=== PATIENT | female | born 1955 | race Caucasian/White ===

== ENCOUNTER → 2016-11-02 | Outpatient (CLI) | payer MEDICARE, OTHER ==
[~2016-11-02] MED LIST: FLUT12AE4 IH; IPRA0.2S51 IH; IPRA3AMP INH; LEVO500T80 PO; MONT10TA24 PO
--- NOTE | 2016-11-02 13:22 | Diagnostic Imaging Report ---
PROCEDURE: CT chest without contrast. TECHNIQUE: Multiple contiguous axial images were obtained through the chest without the use of intravenous contrast. INDICATION: History of pneumothorax. COPD. COMPARISON: 12/02/2015. FINDINGS: Left chest tube has been removed in the interim. The lungs show hyperaeration. There are again noted chronic interstitial and nodular changes within the lingula and right middle lobe. Apical bullous emphysematous disease is present bilaterally. There are multiple peripheral subpleural bullae. No evidence of recurrent pneumothorax or pleural effusion. There is a 1.8 x 1.3 cm periaortic lymph node on the left at the level of the renal vein. This is unchanged since previous exam. There is also a cyst in the left lobe of the liver that is unchanged. IMPRESSION: 1. Obstructive interstitial lung disease with apical bullous changes. Chronic interstitial nodular densities noted in the lingula and right middle lobe. 2. No evidence of recurrent pneumothorax or pleural effusion. 3. There is a stable periaortic lymph node on the left at the level of the renal vein, as described. Dictated by: Dictated on workstation # [id number]
== END ==
LOC: RAD 12:53
PROVIDERS: ATTEND Nurse Practitioner Family
DX: R91.1 Solitary pulmonary nodule (principal); F17.201 Nicotine dependence, unspecified, in remission; J44.9 Chronic obstructive pulmonary disease, unspecified
CPT/HCPCS: 71250

== ENCOUNTER → 2017-07-11 | Outpatient (CLI) | payer MEDICARE, OTHER ==
--- NOTE | 2017-07-11 13:43 | Diagnostic Imaging Report ---
PA and lateral views of the chest. INDICATION: COPD. Hypoxia. COMPARISON: 05/04/16. FINDINGS: The lungs are hyperinflated with prominent interstitial markings seen. This could be related to atypical or interstitial pneumonia versus vascular congestion. The heart size is not enlarged. No effusion or pneumothorax. IMPRESSION: 1. COPD. 2. Diffuse interstitial thickening which may relate to interstitial pneumonia or vascular congestion. Dictated by: Dictated on workstation # [id number]
== END ==
LOC: RAD 12:38
PROVIDERS: ATTEND Nurse Practitioner Family
DX: J44.9 Chronic obstructive pulmonary disease, unspecified (principal); R91.8 Other nonspecific abnormal finding of lung field
CPT/HCPCS: 71020

== ENCOUNTER → 2018-03-18 | Outpatient (CLI) | payer MEDICARE, OTHER ==
--- NOTE | 2018-03-18 15:39 | Diagnostic Imaging Report ---
PROCEDURE: CT chest without contrast. TECHNIQUE: Multiple contiguous axial images were obtained through the chest without the use of intravenous contrast. INDICATION: Spiculated right lung mass noted on preoperative chest radiograph. COMPARISON: CT chest 11/02/2016 and 12/02/2015. Chest radiograph 07/11/2017. More recent imaging and/or reports are not currently available. FINDINGS: Evaluation of the mediastinal structures is limited given lack of contrast. The heart size appearing to be within normal limits. There is presence of scattered coronary artery calcification. Definitive pathologically enlarged mediastinal and/or hilar lymph nodes not present. There is bulky left hilar calcification. Thoracic aortic contour unremarkable. EG junction appearing unremarkable. Rather markedly advanced emphysematous change about the lung pappas. Prominent bulla and bleb formation particularly at the upper lobe distributions, right greater than left. There has been multifocal areas of changes in the lung parenchyma particularly of the right lung. In the posterior medial aspect of the superior portions of the right lower lobe is a somewhat spiculated, mixed solid and cavitary process containing air-fluid level. This blurs separately with thickened pleura. This parenchymal density extends to the fissure plane and celeste. The more pleural-based cystic portion with fluid measures 3.5 x 1.4 cm in axial plane by approximately 7 cm craniocaudal. An additional predominantly more solid spiculated density superiorly measuring 2.7 x 1.2 x 3.7 cm. Most inferior pleural based component measuring 5.4 x 1.8 cm. Irregular parenchymal density in the posterior basilar medial aspect of the right upper lobe is also present. Within the subpleural region of the right middle lobe is an asymmetric area of parenchymal density measuring 2.1 x 1.0 x 2.3 cm. Small areas of nodularity of the subpleural region of the lingula of the left upper lobe. No significant pleural effusion. Unchanged rounded low-density foci of the anterior aspect of the left lobe of the liver. Adrenal gland is not well-defined but appearing generally unremarkable. Left superior periaortic lymph node measuring 19 x 12 mm generally stable. No acute bony abnormality. Mild degenerative change about the thoracic spine. Multifocal disc space narrowing. IMPRESSION: 1. Rather advanced emphysematous change about the lung parenchyma. 2. There has been development of areas of asymmetric parenchymal density of both lung pappas. While some of this could be scarring, possibility of superimposed infectious etiology and/or neoplasm is definitely in the differential and should be excluded. Consideration for PET/CT would be of benefit. Dictated by: Dictated on workstation # [id number]
== END ==
LOC: RAD 12:15
PROVIDERS: ATTEND Otolaryngology
DX: Z01.818 Encounter for other preprocedural examination (principal); J43.9 Emphysema, unspecified
CPT/HCPCS: 71250

== ENCOUNTER → 2018-03-27 | Outpatient (CLI) | payer MEDICARE, OTHER ==
[2018-03-27 11:06] LABS: ABG BASE EXCESS 4.9 MMOL/L (-2.5-2.5); ABG OXYGEN SATURATION 94 % (94-100); ABG PCO2 48 MMHG (35-45); ABG PO2 60 MMHG (79-93); ABG TCO2 31.1 MMOL/L (21.0-31.0)
[2018-03-27 11:10] LABS: ALLENS TEST YES-POS; INSPIRED O2 RM AIR; PATIENT TEMP 97.5; VENTILATOR NO
== END ==
LOC: RT 10:23
PROVIDERS: ATTEND Internal Medicine Critical Care Medicine
DX: J44.9 Chronic obstructive pulmonary disease, unspecified (principal); R09.02 Hypoxemia; R91.1 Solitary pulmonary nodule; J93.9 Pneumothorax, unspecified; J06.9 Acute upper respiratory infection, unspecified; F17.201 Nicotine dependence, unspecified, in remission
CPT/HCPCS: 82805

== ENCOUNTER 2018-04-16 06:53 | Outpatient (CLI) | payer MEDICARE, OTHER ==
[~2018-04-16] VITALS: Ht 167.6 cm; Wt 61.4 kg
[2018-04-16] VITALS (16 sets, daily range): BP systolic 112–132; BP diastolic 66–87
[~2018-04-16 06:53] MED LIST changes: -IPRA3AMP INH; +IPRA3AMP31 INH
[2018-04-16] MEDS ORDERED: MIDAZOLAM 2 MG/2 ML (VERSED) VIAL IVP PRN (07:45)
[2018-04-16] MEDS ORDERED: LIDOCAINE 1% INJ 20 ML 20 ML VIAL INJ ONE (07:45)
[2018-04-16] MEDS ORDERED: fentaNYL INJECTION 100 MCG/2 ML AMP IVP PRN (07:45)
[2018-04-16 07:52] LABS: BASOPHILS # (AUTO) 0.1 10^3/uL (0.0-0.1); BASOPHILS % (AUTO) 1 % (0-10); EOSINOPHILS # (AUTO) 0.4 10^3/uL (0.0-0.3); EOSINOPHILS % (AUTO) 8 % (0-10); HEMATOCRIT 43 % (35-52); HEMOGLOBIN 14.3 G/DL (11.5-16.0); LYMPHOCYTES # (AUTO) 1.1 X 10^3 (1.0-4.0); LYMPHOCYTES % (AUTO) 23 % (12-44); MEAN CORPUSCULAR HEMOGLOBIN 32 PG (25-34); MEAN CORPUSCULAR HGB CONC 33 G/DL (32-36); MEAN CORPUSCULAR VOLUME 97 FL (80-99); MEAN PLATELET VOLUME 9.8 FL (7.4-10.4); MONOCYTES # (AUTO) 0.6 X 10^3 (0.0-1.0); MONOCYTES % (AUTO) 12 % (0-12); NEUTROPHILS # (AUTO) 2.7 X 10^3 (1.8-7.8); NEUTROPHILS % (AUTO) 56 % (42-75); PLATELET COUNT 164 10^3/uL (130-400); RED BLOOD COUNT 4.44 10^6/uL (4.35-5.85); RED CELL DISTRIBUTION WIDTH 14.4 % (10.0-14.5); WHITE BLOOD COUNT 4.8 10^3/uL (4.3-11.0)
[2018-04-16 08:04] LABS: PROTHROMBIN TIME PATIENT 13.6 SEC (12.2-14.7)
[2018-04-16] MEDS ORDERED: NS IV 1000 ML 0 ML ONE (08:42)
[2018-04-16] MEDS ORDERED: HYDROcodone/APAP 5 MG/325 MG (LORTAB) TAB PO PRN (09:00)
--- NOTE | 2018-04-16 12:05 | Diagnostic Imaging Report ---
INDICATION: Status post lung biopsy. TIME OF EXAM: 10:35 AM Correlation is made with prior study from 07/11/2017. FINDINGS: There is no evidence of pneumothorax, status post right lung biopsy. No effusion is seen. Lungs are clear. IMPRESSION: No evidence of pneumothorax, status post right lung biopsy. Dictated by: Dictated on workstation # [id number]
--- NOTE | 2018-04-16 12:32 | Pre-Procedure Progress Note ---
Pre-Procedure Progress Note H&P Reviewed The H&P was reviewed, patient examined and no changes noted. Date H&P Reviewed: Apr 16, 2018 Time H&P Reviewed: 08:30 Pre-Procedure Diagnosis: Right lung mass NICCI LEBRON MD Apr 16, 2018 12:32
--- NOTE | 2018-04-16 13:12 | Diagnostic Imaging Report ---
Indication: Right lung mass. Patient presents for CT-guided biopsy. Informed written consent was obtained from the patient. The patient was brought to the CT suite and placed on the table in the prone position. Axial imaging through the chest was performed to evaluate appropriate entry site. Skin of the right posterior thorax was prepped and draped in usual sterile fashion. A small amount of 1% lidocaine utilized for local anesthesia. A 20-gauge coaxial Temno needle was advanced and placed to the nodular density in the posterior right lower lobe at a site of hypermetabolism noted on recent PET CT. Multiple core biopsies were obtained. A blood patch was injected during needle withdrawal. Hemostasis was obtained using manual compression. No complicating features are seen. No pneumothorax is identified. Impression: CT-guided biopsy of the area of nodularity in the posterior right lower lobe. Pathology results are currently pending. Patient tolerated the procedure well. Dictated by: Dictated on workstation # [id number]
== END 2018-04-16 13:30 | disposition home or self-care (01) ==
LOC: SDC 06:53
PROVIDERS: ATTEND Internal Medicine Critical Care Medicine
DX: J84.10 Pulmonary fibrosis, unspecified (principal); J98.4 Other disorders of lung; R94.2 Abnormal results of pulmonary function studies; J44.9 Chronic obstructive pulmonary disease, unspecified; F17.201 Nicotine dependence, unspecified, in remission
CPT/HCPCS: 36415; 71045; 77012; 85025; 85610; 85730

== ENCOUNTER 2018-04-25 05:35 | Outpatient (CLI) | payer MEDICARE, OTHER ==
[~2018-04-25] VITALS: Ht 167.6 cm; Wt 58.6 kg
[2018-04-25] MEDS ORDERED: FLUT9.9S NS (11:18)
[2018-04-25] MEDS ORDERED: CETI10TA17 PO (11:18)
== END 2018-04-25 11:19 ==
LOC: PREOP 05:35
PROVIDERS: ATTEND Internal Medicine Critical Care Medicine
DX: Z01.818 Encounter for other preprocedural examination (principal)

== ENCOUNTER 2018-04-29 06:19 | Day surgery (SDC) | payer MEDICARE, OTHER ==
[~2018-04-29] VITALS: Ht 167.6 cm; Wt 58.6 kg
[2018-04-29] VITALS (7 sets, daily range): BP systolic 111–140; BP diastolic 61–91
[~2018-04-29 06:19] MED LIST changes: +CETI10TA17 PO; +FLUT9.9S NS
[2018-04-29] MEDS ORDERED: NALOXONE 0.4 MG/ML 1 ML (NARCAN) VIAL IV ONE ×2 (06:20→08:15)
[2018-04-29] MEDS ORDERED: FLUMAZENIL (ROMAZICON) 0.1 MG/ML 5 ML VIAL IV ONE ×2 (06:20→08:15)
--- OUTSIDE RECORDS SUMMARY | 2018-04-29 06:23 | XMS REPORT | Encounter Summary ---
Author Author [facility] Organization [facility] Address Unknown Phone Unavailable Care Team Providers Care Wrapping Machine Helper Name Role Phone MunirZaria johnson RIGHT OF WAY APPRAISER PCP Encounter Details Date Type Department Care Team Description 04/01/2018 Hospital [facility] Radiology [address] [place] [address] Social History Tobacco Use Types Packs/Day Years Used Date Current Every Day Smoker Cigarettes 1 42 Smokeless Tobacco: Former Chew User Comments: up to 2 packs a day for about 7-8 years; only chewed for a few months Alcohol Use Drinks/Week oz/Week Comments No Sex Assigned at Date Recorded Not on file as of this encounter Medications at Time of Discharge Medication Sig. Disp. Refills Start Date End Date albuterol (VENTOLIN HFA) Inhale 2 puffs by mouth 90 mcg/actuation inhaler into the lungs every 4 hours as needed for Wheezing or Shortness of Breath. Shake well before use. albuterol-ipratropium Inhale 3 mL solution by (DUO-NEB, DUO-VENT) 0.5 nebulizer as directed mg-3 mg(2.5 mg base)/3 mL three times daily as nebulizer solution needed for Wheezing. cetirizine (ZYRTEC) 10 mg Take 10 mg by mouth every tablet morning. fish oil- omega 3-DHA/EPA Take 1 capsule by mouth 300/1,000 mg capsule twice daily. fluticasone-vilanterol Inhale 1 puff by mouth (BREO ELLIPTA) 200-25 into the lungs daily. mcg/dose inhaler montelukast (SINGULAIR) Take 10 mg by mouth at 10 mg tablet bedtime daily. as of this encounter Plan of Treatment Not on fileas of this encounter Results * NM PET/CT EXTERNAL IMAGING (04/01/2018) Narrative This order has been auto finalized and does not contain a result. in this encounter Visit Diagnoses Diagnosis Diagnosis unknown Other unknown and unspecified cause of morbidity or mortality
--- OUTSIDE RECORDS SUMMARY | 2018-04-29 06:23 | XMS REPORT | Encounter Summary ---
Author Author [facility] Organization [facility] Address Unknown Phone Unavailable Care Team Providers Care Slip Feeder Name Role Phone Zaria Amaral LEAD TEACHER PCP Encounter Details Date Type Department Care Team Description 03/26/2018 Documentation [facility] Elise Ortiz MD Physicians - ENT [address] [facility] [address] [place] [address] [phone] [place] [address] Social History Tobacco Use Types Packs/Day Years Used Date Current Every Day Smoker Cigarettes 1 42 Smokeless Tobacco: Former Chew User Comments: up to 2 packs a day for about 7-8 years; only chewed for a few months Alcohol Use Drinks/Week oz/Week Comments No Sex Assigned at Date Recorded Not on file as of this encounter Progress Notes * Elise Ortiz MD - 03/26/2018 12:14 PM CDT Spoke to pt regarding CT findings. Unclear if infectious or neoplastic. Previous issues with ptx was left sided. She has appt w/ Python Engineer Dr. Abdiel Murphy in [facility] tomorrow. Have asked that his office inform us of his findings once available so that we can coordinate care. in this encounter Plan of Treatment Not on fileas of this encounter Visit Diagnoses Not on filein this encounter
--- OUTSIDE RECORDS SUMMARY | 2018-04-29 06:23 | XMS REPORT | Encounter Summary ---
Author Author [facility] Organization [facility] Address Unknown Phone Unavailable Care Team Providers Care Branch Logistics Supervisor Name Role Phone MunirZaria beckett HELMET BINDER PCP Encounter Details Date Type Department Care Team Description 04/20/2018 Ancillary Rad Outpatient, Radiologist Diagnosis unknown Orders [address] [place] [address] Social History Tobacco Use Types Packs/Day Years Used Date Current Every Day Smoker Cigarettes 1 42 Smokeless Tobacco: Former Chew User Comments: up to 2 packs a day for about 7-8 years; only chewed for a few months Alcohol Use Drinks/Week oz/Week Comments No Sex Assigned at Date Recorded Not on file as of this encounter Plan of Treatment Not on fileas of this encounter Results * NM PET/CT EXTERNAL IMAGING (04/01/2018) Narrative This order has been auto finalized and does not contain a result. in this encounter Visit Diagnoses Diagnosis Diagnosis unknown Other unknown and unspecified cause of morbidity or mortality
--- OUTSIDE RECORDS SUMMARY | 2018-04-29 06:23 | XMS REPORT | Encounter Summary ---
Author Author [facility] Organization [facility] Address Unknown Phone Unavailable Care Team Providers Care Apartment Hotel Manager Name Role Phone MunirZaria johnson CHIEF HYDROELECTRIC STATION OPERATOR PCP Encounter Details Date Type Department Care Team Description 03/24/2018 Ancillary Rad Outpatient, Radiologist Diagnosis unknown Orders [address] [place] [address] Social History Tobacco Use Types Packs/Day Years [...] on fileas of this encounter Results * CT CHEST EXTERNAL IMAGING (03/18/2018) Narrative This order has been auto finalized and does not contain a result. in this encounter Visit Diagnoses Diagnosis Diagnosis unknown Other unknown and unspecified cause of morbidity or mortality
--- OUTSIDE RECORDS SUMMARY | 2018-04-29 06:23 | XMS REPORT | Encounter Summary ---
Author Author [facility] Organization [facility] Address Unknown Phone Unavailable Care Team Providers Care Language Therapist Name Role Phone Zaria Amaral NETWORK FIELD ENGINEER PCP Reason for Visit * Reason Comments My Chart Question Encounter Details Date Type Department Care Team Description 03/25/2018 Telephone [facility] Elise Ortiz MD My Chart Question Physicians - ENT [address] [facility] [address] [place] [address] [phone] [place] [address] Social History Tobacco Use Types Packs/Day Years Used Date Current Every Day Smoker Cigarettes 1 42 Smokeless Tobacco: Former Chew User Comments: up to 2 packs a day for about 7-8 years; only chewed for a few months Alcohol Use Drinks/Week oz/Week Comments No Sex Assigned at Date Recorded Not on file as of this encounter Miscellaneous Notes * Telephone Encounter - Ana Goins LPN - 03/25/2018 11:12 AM CDT Ms. Macias is calling to set up her [employer] account. Ms. Macias was advised the code she will need to set up account will be on her last AVS from the 02/27/18 office visit (front page, lower right hand side). Ms. Macias confirms she has the AVS and will have her daughter help her set up account. Ms. Macias advised to call back with questions. in this encounter Plan of Treatment Not on fileas of this encounter Visit Diagnoses Not on filein this encounter
--- OUTSIDE RECORDS SUMMARY | 2018-04-29 06:23 | XMS REPORT | Encounter Summary ---
Author Author [facility] Organization [facility] Address Unknown Phone Unavailable Care Team Providers Care Ocularist Name Role Phone Zaria Amaral MUD MIXER PCP Reason for Visit * Reason Comments Follow-up Phone Call Dr. Kalin Murphy's office Encounter Details Date Type Department Care Team Description 04/04/2018 Telephone [facility] Elise Ortiz MD Follow- up Phone Call (Dr. Maldonado - ENT [address] [facility] Kalin Murphy's office) Ortho and Medical [facility] [address] [place] [address] [address] [facility] [phone] [place] [address] Social History Tobacco Use Types [...] Telephone Encounter - Ana Goins LPN - 04/04/2018 10:05 AM CDT Left message for Dr. Murphy's office to fax OV note from 03/27/18 to so that we may coordinate care. Left direct contact number if they need to speak to our office for any reason. in this encounter Plan of Treatment Not on fileas of this encounter Visit Diagnoses Not on filein this encounter
--- OUTSIDE RECORDS SUMMARY | 2018-04-29 06:23 | XMS REPORT | Clinical Summary ---
Author Author [facility] Organization [facility] Address Unknown Phone Unavailable Care Team Providers Care Dog Warden Name Role Phone Zaria Amaral ROUSTABOUT CREW LEADER PCP Source Comments Some departments are not documenting in the electronic medical record. If you do not see the information that you expected, contact Release of Information in the Health Information Management department at [phone] for further assistance in locating additional records.[facility] Allergies Active Allergy Reactions Severity Noted Date Comments Okra RASH Medium 02/27/2018 Current Medications Prescription Sig. Disp. Refills Start End Date Status Date cetirizine (ZYRTEC) 10 mg Take 10 mg by mouth every Active tablet morning. fluticasone-vilanterol Inhale 1 puff by mouth Active (BREO ELLIPTA) 200-25 into the lungs daily. mcg/dose inhaler albuterol (VENTOLIN HFA) Inhale 2 puffs by mouth Active 90 mcg/actuation inhaler into the lungs every 4 hours as needed for Wheezing or Shortness of Breath. Shake well before use. montelukast (SINGULAIR) Take 10 mg by mouth at Active 10 mg tablet bedtime daily. albuterol-ipratropium Inhale 3 mL solution by Active (DUO-NEB, DUO-VENT) 0.5 nebulizer as directed mg-3 mg(2.5 mg base)/3 mL three times daily as nebulizer solution needed for Wheezing. fish oil- omega 3-DHA/EPA Take 1 capsule by mouth Active 300/1,000 mg capsule twice daily. 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 Kalin Murphy's office) 04/01/2018 Hospital Radiology Encounter 03/26/2018 Documentation Otolaryngology Elise Ortiz MD 03/25/2018 Telephone Otolaryngology Elise Ortiz MD My Chart Question 03/24/2018 Ancillary Radiology Outpatient, Radiologist Diagnosis unknown Orders 03/24/2018 Telephone Otolaryngology Elise Ortiz MD Imaging (CT done at [facility] on 03/18) 03/18/2018 Hospital Radiology Encounter 03/14/2018 Telephone Otolaryngology Elise Ortiz MD Imaging 03/14/2018 Telephone Otolaryndioniciology Elise Ortiz MD Imaging 03/13/2018 Documentation Otolaryngology Elise Ortiz MD Mass of right lung (Primary Dx) 03/12/2018 Hospital Radiology Elise Ortiz MD Encounter 03/12/2018 PAC Office Anesthesiology Elise Ortiz MD Laryngocele ( Primary Dx); Visit Preop examination 03/12/2018 Anesthesia Hui Tran APRN Event 02/27/2018 Office Visit Otolaryngology Elise Ortiz MD Dysphonia ( Primary Dx); 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 Orders Only Otolaryngology Elise Ortiz MD Preop examination (Primary Dx) 02/27/2018 Prep for Case Otolaryngology Elise Ortiz MD Dysphonia ( Primary Dx); Laryngocele 02/24/2018 Ancillary Radiology Outpatient, Radiologist Diagnosis unknown Orders 02/19/2018 Telephone Oncology Elise Ortiz MD Navigation Assessment from Last 3 Months Family History Medical History Relation Name Comments Allergy-severe Father Defect Father Hearing Loss Father Heart Attack Father Relation Name Status Comments Father Mother Social History Tobacco Use Types Packs/Day Years Used Date Current Every Day Smoker Cigarettes 1 42 Smokeless Tobacco: Former Chew User Comments: up to 2 packs a day for about 7-8 years; only chewed for a few months Alcohol Use Drinks/Week oz/Week Comments No Sex Assigned at Date Recorded Not on file Last Filed Vital Signs Vital Sign Reading Time Taken Blood Pressure 108/70 03/12/2018 12:40 PM CDT Pulse 82 03/12/2018 12:40 PM CDT Temperature 36.8 C (98.2 F) 03/12/2018 12:40 PM CDT Respiratory Rate - - Oxygen Saturation 95% 03/12/2018 12:40 PM CDT Inhaled Oxygen - - Concentration Weight 58.8 kg (129 lb 9.6 oz) 03/12/2018 12:40 PM CDT Height 167.6 cm (5' 6") 03/12/2018 12:40 PM CDT Body Mass Index 20.92 03/12/2018 12:40 PM CDT Plan of Treatment Health Maintenance Due Date Last Done Comments HEPATITIS C SCREENING 1956 PHYSICAL (COMPREHENSIVE) 1963 EXAM PERTUSSIS VACCINE 1967 HIV SCREENING 1971 TETANUS VACCINE 1973 CERVICAL CANCER SCREENING 1986 BREAST CANCER SCREENING 1996 COLORECTAL CANCER 2006 SCREENING SHINGLES RECOMBINANT 2006 VACCINE (1 of 2) INFLUENZA VACCINE 07/07/2018 Results * NM PET/CT EXTERNAL IMAGING (04/01/2018) Narrative This order has been auto finalized and does not contain a result. * CT CHEST EXTERNAL IMAGING (03/18/2018) Narrative This order has been auto finalized and does not contain a result. * CHEST 2 VIEWS (03/12/2018 3:00 PM) Specimen Performing Laboratory [facility] RESULTS Impressions 1.Findings of air trapping without acute cardiopulmonary abnormality. 2.Spiculated nodular density overlying the right upper lung. CT of the chest is suggested for further evaluation. Approved by Silverio Honeycutt M.D. on 03/12/2018 4:17 PM By my electronic signature, I attest that I have personally reviewed the images for this examination and formulated the interpretations and opinions expressed in this report Finalized by Laurel Hopson M.D. on 03/12/2018 4:21 PM. Dictated by Silverio Honeyctut M.D. on 03/12/2018 3:07 PM. Narrative CHEST 2 VIEWS Clinical Indication: Female, 62 years old. Preoperative examination Comparison: External CT neck January 24, 2018 Findings: The heart is normal in size without pulmonary venous congestion. A spiculated nodular density is seen overlying the right upper lung. There is hyperinflation of the lungs with flattening of the hemidiaphragms consistent with air trapping. Calcified granulomas noted. There is blunting of the costophrenic angles, likely secondary to scarring. No pneumothorax. Procedure Note Interface, Radiant Results - 03/12/2018 4:24 PM CDT CHEST 2 VIEWS Clinical Indication: Female, 62 years old. Preoperative examination Comparison: External CT neck January 24, 2018 Findings: The heart is normal in size without pulmonary venous congestion. A spiculated nodular density is seen overlying the right upper lung. There is hyperinflation of the lungs with flattening of the hemidiaphragms consistent with air trapping. Calcified granulomas noted. There is blunting of the costophrenic angles, likely secondary to scarring. No pneumothorax. IMPRESSION 1. Findings of air trapping without acute cardiopulmonary abnormality. 2. Spiculated nodular density overlying the right upper lung. CT of the chest is suggested for further evaluation. Approved by Silverio Honeycutt M.D. on 03/12/2018 4:17 PM By my electronic signature, I attest that I have personally reviewed the images for this examination and formulated the interpretations and opinions expressed in this report Finalized by Laurel Hopson M.D. on 03/12/2018 4:21 PM. Dictated by Silverio Honeycutt M.D. on 03/12/2018 3:07 PM. * CBC (03/12/2018 1:38 PM) Component Value Ref Range White Blood Cells 6.3 4.5 - 11.0 K/UL RBC 4.72 4.0 - 5.0 M/UL Hemoglobin 15.1 (H) 12.0 - 15.0 GM/DL Hematocrit 44.7 36 - 45 % MCV 94.7 80 - 100 FL MCH 32.0 26 - 34 PG MCHC 33.8 32.0 - 36.0 G/DL RDW 14.4 11 - 15 % Platelet Count 185 150 - 400 K/UL MPV 7.6 7 - 11 FL Specimen Performing Laboratory [facility] [address] [place] [address] * TYPE & SCREEN (NOT CROSSMATCH ELIGIBLE) (03/12/2018 1:38 PM) Component Value Ref Range ABO/RH(D) O POS Antibody Screen NEG Blood Component Type RED CELL GROUP Specimen Performing Laboratory Blood, venous - Blood [facility] [address] [place] [address] * BASIC METABOLIC PANEL (03/12/2018 1:38 PM) Component Value Ref Range Sodium 140 137 - 147 MMOL/L Potassium 3.7 3.5 - 5.1 MMOL/L Chloride 105 98 - 110 MMOL/L CO2 30 21 - 30 MMOL/L Anion Gap 5 3 - 12 Glucose 61 (L) 70 - 100 MG/DL Blood Urea Nitrogen 10 7 - 25 MG/DL Creatinine 0.46 0.4 - 1.00 MG/DL Calcium 9.1 8.5 - 10.6 MG/DL eGFR Non >60 >60 mL/min Comment: The eGFR is not validated for use in drug dosing adjustments.Continue to use estimated creatinine clearance per dosing reference text.Please contact the Clinical Pharmacist for questions. eGFR >60 >60 mL/min Comment: The eGFR is not validated for use in drug dosing adjustments.Continue to use estimated creatinine clearance per dosing reference text.Please contact the Clinical Pharmacist for questions. Specimen Performing Laboratory [facility] [address] [facility] [place] [address] from Last 3 Months
--- OUTSIDE RECORDS SUMMARY | 2018-04-29 06:24 | XMS REPORT | Encounter Summary ---
Author Author [facility] Organization [facility] Address Unknown Phone Unavailable Care Team Providers Care Estate Planning Director Name Role Phone Zaria Amaral BUTTON CUTTING MACHINE OPERATOR PCP Reason for Visit * Reason Comments Imaging Encounter Details Date Type Department Care Team Description 03/14/2018 Telephone [facility] Elise Ortiz MD Imaging Physicians - ENT [address] Ortho and Medical [place] [address] [place] [address] [phone] [place] [address] Social History Tobacco Use Types [...] Telephone Encounter - Ana Goins LPN - 03/14/2018 11:36 AM CDT Pt had left message for this nurse at 1115, and called the call center at 1121. She is requesting the CT be done today if at all possible. She has not eaten yet. Return phone call to patient to advise that [facility] in [place] has scheduled CT chest for Saturday03/18/18. Arrival time is 1215 for 1245 scan. NPO 4 hours. Ms. Macias also spoke briefly with Dr. Ortiz who advised pt surgery would need to be delayed until after work up. Ms. Macias requesting to have testing done in [place] however Dr. Ortiz informed her she prefers CT be done at [facility] for clouding purposes and faster turnaround. Ms. Minor voices understanding of above and denies further concerns at this time. * Telephone Encounter - Cory Winn - 03/14/2018 11:21 AM CDT PT is wanting to get the test done today if possible if you can call them back. in this encounter Plan of Treatment Not on fileas of this encounter Visit Diagnoses Not on filein this encounter
--- OUTSIDE RECORDS SUMMARY | 2018-04-29 06:24 | XMS REPORT | Encounter Summary ---
Author Author [facility] Organization [facility] Address Unknown Phone Unavailable Care Team Providers Care Bass Viol Repairer Name Role Phone MunirZaria johnson HOME HEALTH LPN PCP Encounter Details Date Type Department Care Team Description 03/18/2018 Hospital [facility] Hospital Radiology [address] [address] Social History Tobacco Use Types Packs/Day Years [...]
--- OUTSIDE RECORDS SUMMARY | 2018-04-29 06:24 | XMS REPORT | Encounter Summary ---
Author Author [facility] Organization [facility] Address Unknown Phone Unavailable Care Team Providers Care Php Engineer Name Role Phone MunirZaria beckett Shelbi POWER HAIR CLIPPER PCP Encounter Details Date Type Department Care Team Description 03/12/2018 Hospital [facility] Elise Ortiz MD Encounter Hospital Radiology [address] [place] [address] [place] [address] [place] [address] [phone] Social History Tobacco Use Types Packs/Day Years [...]
--- OUTSIDE RECORDS SUMMARY | 2018-04-29 06:24 | XMS REPORT | Encounter Summary ---
Author Author [facility] Organization [facility] Address Unknown Phone Unavailable Care Team Providers Care Service Captain Name Role Phone Munir Zaria Shelbi TRAVEL INFORMATION CENTER SUPERVISOR PCP Encounter Details Date Type Department Care Team Description 02/27/2018 Prep for Case [facility] Elise Ortiz MD Dysphonia (Primary Dx); Physicians - ENT [address] Laryngocele Ortho and Medical [place] [address] [place] [address] [address] [facility] [phone] [place] [address] Social History Tobacco Use Types Packs/Day Years Used Date Current Every Day Smoker Cigarettes 5 42 Smokeless Tobacco: Never Used Sex Assigned at Date Recorded Not on file as of this encounter Plan of Treatment Not on fileas of this encounter Visit Diagnoses Diagnosis Dysphonia - Primary Laryngocele Other congenital anomaly of larynx, trachea, and bronchus
--- OUTSIDE RECORDS SUMMARY | 2018-04-29 06:24 | XMS REPORT | Encounter Summary ---
Author Author [facility] Organization [facility] Address Unknown Phone Unavailable Care Team Providers Care Buffer Operator Name Role Phone Zaria Amaral MEAT PROCESS WORKER PCP Encounter Details Date Type Department Care Team Description 02/27/2018 Orders Only [facility] Elise Ortiz MD Preop examination Physicians - ENT [address] (Primary Dx) Ortho and Medical [place] [address] [place] [address] [phone] [place] [address] Social History Tobacco Use Types Packs/Day Years Used Date Current Every Day Smoker Cigarettes 5 42 Smokeless Tobacco: Never Used Sex Assigned at Date Recorded Not on file as of this encounter Plan of Treatment Name Priority Associated Diagnoses Order Schedule ECG 12-LEAD Routine Preop examination Expected: 03/13/2018, Expires: 02/27/2019 as of this encounter Results * CHEST 2 VIEWS (03/12/2018 3:00 PM) [...] Silverio Honeycutt M.D. on 03/12/2018 3:07 PM. Narrative CHEST [...] Honeycutt M.D. on 03/12/2018 3:07 PM. * BASIC METABOLIC PANEL (03/12/2018 1:38 PM) [...] Performing Laboratory Blood [facility] [address] [place] [address] * CBC (03/12/2018 1:38 PM) Component Value [...] - 11 FL Specimen Performing Laboratory Blood MAIN LAB [address] [place] [address] in this encounter Visit Diagnoses Diagnosis Preop examination - Primary Preoperative examination, unspecified
--- OUTSIDE RECORDS SUMMARY | 2018-04-29 06:24 | XMS REPORT | Encounter Summary ---
Author [facility] Address Unknown Phone Unavailable Care Team Providers Care Transit Specialist Name Role Phone Zaria Amaral SPANISH MEDICAL INTERPRETER PCP Reason for Referral * Radiology Services Status Reason Specialty Diagnoses / Referred By Referred To Procedures Contact Contact New Request Radiology Diagnoses Elise Ortiz Mass of right MD lung [address] [place]cedures [place] [address] [place]ST [place] [address] Encounter Details Date Type Department Care Team Description 03/13/2018 Documentation [facility] Elise Ortiz MD Mass of right lung Physicians - ENT [address] (Primary Dx) Ortho and Medical [place] [address] [place] [address] [phone] [place] [address] Social History Tobacco Use Types [...] Treatment Name Priority Associated Diagnoses Order Schedule CT CHEST WO CONTRAST Routine Mass of right lung Expected: 03/13/2018 (Approximate), Expires: 03/13/2019 as of this encounter Visit Diagnoses Diagnosis Mass of right lung - Primary
--- OUTSIDE RECORDS SUMMARY | 2018-04-29 06:24 | XMS REPORT | Encounter Summary ---
Author Author [facility] Organization [facility] Address Unknown Phone Unavailable Care Team Providers Care Mentally Retarded Teacher Name Role Phone Zaria Amaral C SOFTWARE ENGINEER PCP Reason for Visit * Reason Comments Imaging Encounter Details Date Type Department Care Team Description 03/14/2018 Telephone [facility] Elise Ortiz MD Imaging Physicians - ENT [address] Ortho and Medical [place] [address] [place] [address] [phone] [place] [address] Social History Tobacco Use Types [...] Encounter - Ana Goins LPN - 03/14/2018 8:26 AM CDT Telephone call to [facility] in [place], [place]. Per scheduling department, pt demographics and order need to be faxed to them to schedule. This was faxed to [phone]. The scheduling department will call patient to schedule. in this encounter Plan of Treatment Not on fileas of this encounter Visit Diagnoses Not on filein this encounter
--- OUTSIDE RECORDS SUMMARY | 2018-04-29 06:24 | XMS REPORT | Encounter Summary ---
Author Author [facility] Organization [facility] Address Unknown Phone Unavailable Care Team Providers Care Stockroom Clerk Name Role Phone Steve Amaraleen Shelbi TECHNOLOGY PROJECT MANAGER PCP Encounter Details Date Type Department Care Team Description 03/18/2018 Anesthesia [place] Operating Room Abdiel Mcknight MD Event [address] [facility] [address] [place] [address] [address] [place], [place] [phone] Anesthesia Record Procedure Name Responsible Anesthesia Start Time Anesthesia Stop Time Anesthesiologist DIRECT MICROLARYNGOSCOPY WITH BIOPSY (N/A ) No events on file. Meds * No agents on file. * No blood administrations on file. No LDAs on file. in this encounter Social History Tobacco Use Types Packs/Day Years Used Date Current Every Day Smoker Cigarettes 1 42 Smokeless Tobacco: Former Chew User Comments: up to 2 packs a day for about 7-8 years; only chewed for a few months Alcohol Use Drinks/Week oz/Week Comments No Sex Assigned at Date Recorded Not on file as of this encounter OR Notes * Anesthesia Preprocedure Evaluation - Hui Tran APRN - 03/12/2018 1:58 PM CDT Formatting of this note may be different from the original. Anesthesia Pre-Procedure Evaluation Name: Angeline Macias : 1955 Age: 62 y.o. Sex : female Procedure Date: 03/18/2018 Procedure: Procedure(s) with comments: DIRECT MICROLARYNGOSCOPY WITH BIOPSY - CASE LENGTH 3 HOURS, 0 DEGREE TELESCOPE, NECK FRANCISCO EXCISION EXTERNAL LARYNGOCELE ESOPHAGOSCOPY BRONCHOSCOPY POSSIBLE TRACHEOSTOMY Physical Assessment Vital Signs (last filed in past 24 hours): BP: 108/70 (03/12 1240) Temp: 36.8 C (98.2 F) (03/12 1240) Pulse: 82 (03/12 1240) Respirations: 15 PER MINUTE (03/12 1240) SpO2: 95 % (03/12 1240) O2 Delivery: None (Room Air) (03/12 1240) Height: 167.6 cm (66") (03/12 1240) Weight: 58.8 kg (129 lb 9.6 oz) (03/12 1240) Dosing / Dry Weight: 58.8 kg (129 lb 9.6 oz) (03/12 1240) Patient History Allergies Allergen Reactions Okra RASH Current Medications Medication Directions albuterol (VENTOLIN HFA) 90 mcg/actuation inhaler Inhale 2 puffs by mouth into the lungs every 4 hours as needed for Wheezing or Shortness of Breath. Shake well before use. albuterol-ipratropium (DUO-NEB, DUO-VENT) 0.5 mg-3 mg(2.5 mg base)/3 mL nebulizer solution Inhale 3 mL solution by nebulizer as directed three times daily as needed for Wheezing. cetirizine (ZYRTEC) 10 mg tablet Take 10 mg by mouth every morning. fish oil- omega 3-DHA/EPA 300/1,000 mg capsule Take 1 capsule by mouth twice daily. fluticasone-vilanterol (BREO ELLIPTA) 200-25 mcg/dose inhaler Inhale 1 puff by mouth into the lungs daily. montelukast (SINGULAIR) 10 mg tablet Take 10 mg by mouth at bedtime daily. Past Medical History: Diagnosis Date Anxiety disorder defect open vertebrae lumbar spine Chronic lung disease Complication of anesthesia COPD (chronic obstructive pulmonary disease) (HCC) Hx of pneumothorax 12/19/2015 Hypothyroid On home O2 4.5 liters at noc increased from 2 liters in the past year Tobacco abuse Past Surgical History: Procedure Laterality Date HERNIA REPAIR 1975 HX APPENDECTOMY 1976 expl. lap HX THYROIDECTOMY 2000 left partial DILATION AND CURETTAGE 2416-1932's x 4 Social History Social History Marital status: Unknown Spouse name: N/A Number of children: N/A Years of education: N/A Occupational History Not on file. Social History Main Topics Smoking status: Current Every Day Smoker Packs/day: 1.00 Years: 42.00 Types: Cigarettes Smokeless tobacco: Former User Types: Chew Comment: up to 2 packs a day for about 7-8 years; only chewed for a few months Alcohol use No Drug use: No Sexual activity: Not on file Other Topics Concern Not on file Social History Narrative No narrative on file Review of Systems/Medical History PONV Screening: Female gender History of anesthetic complications (history of hypotension prior to hemithyroidectomy) No family history of anesthetic complications Airway Laryngocele dysphonia reports difficulty swallowing water but denies choking on food or flavored water flexible laryngoscopy 02/27/[address] Ortiz: The epiglottis was upright. The aryepiglottic folds and false folds appeared normal and were without mucosal mass or lesion. There was a 1-2 cm submucosal fullness at level of the left aryepiglottic fold. The visualized hypopharynx was unremarkable. The true vocal folds were without obvious mucosal or submucosal lesions, but I am suspicious there is a small polyp on the right posterior cord. The ventricle is obliterated on the left. The right and left cords adducted and abducted fully. Though difficult to assess without stroboscopy, closure appeared to be complete. A limited view of the subglottis revealed no mucosal lesions or stenosis. Pulmonary Current smoker (current smoker: 1/2ppd, 42 pack years) COPD (Breo, albuterol; nebulizer prn--albuterol use dependent on humidity and activity), moderate Home oxygen use (4 1/2L via NC to sleep (increased from 2L last fall by pulm ); not currently on during day; 95% on RA at PAC visit) denies change in pulmonary or functional status since last pulmonary office visit 12/2017 ruptured bleb/spontaneous pneumothorax 2015 with formal evaluation and short- term chest tube; resolved--follows pulm Cardiovascular Recent diagnostic studies: ECG ECG 03/12/18: SR, rate 74 Exercise tolerance: >4 METS (able to walk 1/4 mile, push grocery cart without CP or dyspnea) Beta Juarez therapy: No No hypertension, No valvular problems/murmurs No past LA, No palpitations No dysrhythmias No angina No hyperlipidemia Dyspnea on exertion (stable, chronic since spontaneous pneumothorax) Chest discomfort noted after hormone replacement therapy initiated, discontinued without recurrence since (1999) GI/Hepatic/Renal - negative No GERD, Neuro/Psych 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 Abdominal Findings: Not obese Neurological Findings: Normal mental status Diagnostic Tests Hematology: No results found for: HGB, HCT, PLTCT, WBC, NEUT, ANC, LYMPH, ALC, ABSLYMPHCT, THAO, AMC, EOSA, ABC, BASOPHILS, MCV, MCH, MCHC, MPV, RDW General Chemistry: No results found for: NA, K, CL, CO2, GAP, BUN, CR, GLU, CA, KETONES, ALBUMIN, LACTIC, OBSCA, MG, TOTBILI, TOTBILCB, PO4 Coagulation: No results found for: PT, PTT, INR Anesthesia Plan ASA score: 3 Induction method: intravenous Informed Consent Use of blood products discussed with patient; consented to blood products. labs: CBC, BMP (ordered by Dr. Ortiz); T & S, T & C DOS SONNY: none consult: none in this encounter Plan of Treatment Not on fileas of this encounter Visit Diagnoses Not on filein this encounter
--- OUTSIDE RECORDS SUMMARY | 2018-04-29 06:24 | XMS REPORT | Encounter Summary ---
Author Author [facility] Organization [facility] Address Unknown Phone Unavailable Care Team Providers Care Equipment Specialist Name Role Phone MunirZaria johnson RECRUITMENT INTERNSHIP PCP Encounter Details Date Type Department Care Team Description 03/12/2018 PAC Office Preoperative Assessment Elise Ortiz MD Laryngocele (Primary Dx); Visit Clinic [address] [facility] Preop examination [facility] [address] ri [address] [place] [address] [place] [address] [phone] Anesthesia Record Procedure Name Responsible Anesthesia Start [...] Not on file as of this encounter Last Filed Vital Signs Vital Sign Reading [...] Mass Index 20.92 03/12/2018 12:40 PM CDT in this encounter Instructions * Pre-Anesthesia Medication Instructions - Kalin Adam PHARMD - 03/12/2018 12 :46 PM CDT Formatting of this note may be different from the original. YOUR MEDICATIONS: albuterol (VENTOLIN HFA) 90 mcg/actuation inhaler Inhale [...] 10 mg by mouth at bedtime daily. YOUR MEDICATION INSTRUCTIONS FOR SURGERY: Before surgery Stop the following vitamins, herbals, and natural supplements 14 days before surgery: Fish oil Stop the following medications 7 days before surgery: Anti-inflammatory medications such as ibuprofen (Advil, Motrin) and naproxen (Aleve) You may use acetaminophen (Tylenol) Morning of surgery On the morning of surgery, do NOT take these medications: Remaining vitamins/supplements Ointments/creams/lotions On the morning of surgery, take ONLY these medications with a sip (1-2 ounces) of water: Use inhalers as usual Cetirizine Other information Before surgery, please contact the clinic pharmacist with any medicine updates or questions. E-mail: [email or web address] Before going home from the hospital, please ask your doctor when you should re- start your medicines that were stopped before surgery. * Pre-Anesthesia Patient Instructions - Oliva Kowalski RN - 03/12/2018 12:45 PM CDT GENERAL INFORMATION Before you come to the hospital Make arrangements for a responsible adult to drive you home and stay with you for 24 hours following surgery. Bath/Shower Instructions Take a bath or shower using the special soap given to you in PAC. Use half the bottle the night before, and the other half the morning of your procedure. Use clean towels with each bath or shower. Put on clean clothes after bath or shower. Avoid using lotion and oils. If you are having surgery above the waist, wear a shirt that fastens up the front. Sleep on clean sheets if bath or shower is done the night before procedure. Leave money, credit cards, jewelry, and any other valuables at home. The [facility] is not responsible for the loss or breakage of personal items. Remove nail turks and caicos islander, makeup and all jewelry (including piercings) before coming to the hospital. The morning of your procedure: brush your teeth and tongue do not smoke do not shave the area where you will have surgery What to bring to the hospital ID/ Insurance Card Copy of your Living Will, Advanced Directives, and/or Durable Power of Tavern Car Attendant Small bag with a few personal belongings Cases for glasses/hearing aids/contact lens (bring solutions for contacts) Dress in clean, loose, comfortable clothing Eating or drinking before surgery Do not eat or drink anything after 11:00 p.m. the day before your procedure ( including gum, mints, candy, or chewing tobacco) OR follow the specific instructions you were given by your Surgeon. You may have WATER ONLY up to 2 hours before arriving at the hospital. Other instructions Notify your surgeon if: you become ill with a cough, fever, sore throat, nausea, vomiting or flu- like symptoms you have any open wounds/sores that are red, painful, draining, or are new since you last saw the doctor you need to cancel your procedure You will receive a call with your surgery arrival time from between 2:30pm and 4:30pm the last business day before your procedure. If you do not receive a call, please call [phone] before 4:30pm or [phone] after 4:30pm. Notify us at [facility]: if you need to cancel your procedure if you are going to be late Arrival at the [facility] A [address] [place] [address] [place] [address] ? Park in the P5 parking garage located at [address] [place] [address]. ? Music Librarian parking is available in front of [facility] A between the hours of 7:00 am and 4:00 pm Saturday through Saturday. ? If parking in the P5 garage, take the east elevators in the parking garage to the second level and walk to the entrance of the [facility] A. ? Enter through the 1st floor main entrance and check in with Information Desk. in this encounter Plan of Treatment Not on fileas of this encounter Results * CHEST 2 [...] Honeycutt M.D. on 03/12/2018 3:07 PM. * TYPE & SCREEN (NOT CROSSMATCH ELIGIBLE) (03/12/2018 1:38 PM) Component Value Ref Range ABO/RH(D) O POS Antibody Screen NEG Blood Component Type RED CELL GROUP Specimen Performing Laboratory Blood, venous - Blood MAIN LAB [address] [place] [address] * CBC (03/12/2018 1:38 PM) Component Value [...] Specimen Performing Laboratory Blood MAIN LAB [address] [place] [address] * BASIC METABOLIC PANEL (03/12/2018 1:38 PM) [...] Performing Laboratory Blood [facility] [address] [place] [address] in this encounter Visit Diagnoses Diagnosis Laryngocele - Primary Other congenital anomaly of larynx, trachea, and bronchus Preop examination Preoperative examination, unspecified
--- OUTSIDE RECORDS SUMMARY | 2018-04-29 06:24 | XMS REPORT | Encounter Summary ---
Author Author [facility] Organization [facility] Address Unknown Phone Unavailable Care Team Providers Care Hardener Helper Name Role Phone Munir Zaria Shelbi TURBINE MECHANIC PCP Encounter Details Date Type Department Care Team Description 02/24/2018 Ancillary Rad Outpatient, Radiologist Diagnosis unknown Orders [address] [place] [address] Social History Tobacco Use Types Packs/Day Years Used Date Never Assessed Sex Assigned at Date Recorded Not on file as of this encounter Plan of Treatment Not on fileas of this encounter Results * CT NECK EXTERNAL IMAGING (01/24/2018) Narrative This order has been auto finalized and does not contain a result. * US THYROID EXTERNAL IMAGING (01/06/2018) Narrative This order has been auto finalized and does not contain a result. in this encounter Visit Diagnoses Diagnosis Diagnosis unknown Other unknown and unspecified cause of morbidity or mortality
--- OUTSIDE RECORDS SUMMARY | 2018-04-29 06:24 | XMS REPORT | Encounter Summary ---
Author Author [facility] Organization [facility] Address Unknown Phone Unavailable Care Team Providers Care Bi Application Developer Name Role Phone MunirZaria johnson VERTICAL ROLL OPERATOR PCP Reason for Visit * Reason Comments Dysphonia * Consult, Test & Treat (Routine) Status Reason Specialty Diagnoses / Referred By Referred To Procedures Contact Contact No Auth Needed Otolaryngology Procedures Elise Ortiz MD NEW PATIENT [address] [place] [address] Encounter Details Date Type Department Care Team Description 02/27/2018 Office Visit [facility] Elise Ortiz MD Dysphonia (Primary Dx); Physicians - ENT [address] Laryngocele [facility] [address] [place] [address] [place] [address] Social History Tobacco Use Types Packs/Day Years Used Date Current Every Day Smoker Cigarettes 5 42 Smokeless Tobacco: Never Used Sex Assigned at Date Recorded Not on file as of this encounter Last Filed Vital Signs Vital Sign Reading Time Taken Blood Pressure 128/85 02/27/2018 1:39 PM CDT Pulse 80 02/27/2018 1:39 PM CDT Temperature - - Respiratory Rate - - Oxygen Saturation - - Inhaled Oxygen - - Concentration Weight 59 kg (130 lb) 02/27/2018 1:39 PM CDT Height 167.6 cm (5' 6") 02/27/2018 1:39 PM CDT Body Mass Index 20.98 02/27/2018 1:39 PM CDT in this encounter Progress Notes * Elise Ortiz MD - 02/27/2018 2:00 PM CDT Formatting of this note may be different from the original. Date of Service: 02/27/2018 Subjective: Angeline Macias is a 62 y.o. female. History of Present Illness Angeline Macias is a very pleasant 62 y.o. woman who is referred by Dr. Alexandre Diaz for a complaint of left neck swelling. She is accompanied by her daughter today. Ms. Macias's symptoms began on 09/30/17. She reports that she felt fatigued that day. On 10/01/17, she developed throat pain, and on 10/02/17, she noticed severe left neck swelling. She was treated by her PCP with a 7-day course of levaquin to minimal benefit. She also tried treating her symptoms with lemon juice and pickles to some benefit, reducing her pain to the point of being able to massage the swollen area. With massage, she noted foul-tasting drainage going down her throat and a decline in her voice. She was evaluated by Dr. Diaz , who ordered a CT neck and diagnosed her with a "ruptured diverticulum." Of note, she has a history of a substernal thyroid s/p left partial thyroidectomy in 1999. She notes that she still has nodules on the remaining right thyroid. She also has recurrent oral thrush since July 2017 due to inhaler use. Specific voice complaints include raspiness, effortful speaking, and difficulty projecting. If she turns her head to the left or right, her voice improves. She reports difficulties with swallowing. Specific difficulties include coughing and choking intermittently on water. She generally does well with other liquids and solids. She is not avoiding specific foods due to difficulty swallowing. She denies odynophagia, abdominal pain, hematemesis or melena. She denies benny reflux symptoms such as retrosternal burning/pain after meals, regurgitation or a sour brash sensation in the back of the throat. She does not have a known hiatal hernia. She is not currently taking reflux medications. She reports difficulty breathing. She has severe COPD. She uses oxygen at night and throughout the day as tolerated. She has a history of a left collapsed lung with chest tube and ICU stay 2 years ago. She denies cough or hemoptysis. She reports seasonal or environmental allergies. She is not currently taking allergy medications. She is currently smoking. She smokes 1/2 ppd currently. She is a former 2 ppd for 42 years. Family History Problem Relation Age of Onset Defect Father Allergy-severe Father Hearing Loss Father Heart Attack Father Social History Social History Marital status: Unknown Spouse name: N/A Number of children: N/A Years of education: N/A Social History Main Topics Smoking status: Current Every Day Smoker Packs/day: 5.00 Years: 42.00 Types: Cigarettes Smokeless tobacco: Never Used Alcohol use Not on file Drug use: Unknown Sexual activity: Not on file Other Topics Concern Not on file Social History Narrative No narrative on file Review of Systems Constitutional: Negative. HENT: Positive for ear pain, rhinorrhea, sore throat and trouble swallowing. Eyes: Negative. Respiratory: Positive for choking and wheezing. Cardiovascular: Positive for palpitations and leg swelling. Gastrointestinal: Positive for constipation. Endocrine: Negative. Genitourinary: Negative. Musculoskeletal: Positive for neck stiffness. Skin: Negative. Allergic/Immunologic: Negative. Neurological: Negative. Hematological: Negative. Psychiatric/Behavioral: The patient is nervous/anxious. Objective: albuterol (VENTOLIN HFA) 90 mcg/actuation inhaler Inhale 2 puffs by mouth into the lungs every 6 hours as needed for Wheezing or Shortness of Breath. Shake well before use. cetirizine (ZYRTEC) 10 mg tablet Take 10 mg by mouth every morning. docosahexanoic acid/epa (FISH OIL PO) Take by mouth. fluticasone-vilanterol (BREO ELLIPTA) 200-25 mcg/dose inhaler Inhale 1 puff by mouth into the lungs daily. Vitals: 02/27/18 1339 BP: 128/85 Pulse: 80 Weight: 59 kg (130 lb) Height: 167.6 cm (66") Body mass index is 20.98 kg/m. Physical Exam EXAM: Constitutional: Blood pressure 128/85, pulse 80, height 167.6 cm (66"), weight 59 kg (130 lb). alert, cooperative and no distress Neurologic: Alert and oriented x 3. Cranial nerves II - XII grossly intact and symmetric. Eyes: Pupils equal round and reactive. Extraocular eye movements intact and full. Ears: Pinna appear normal. Hearing intact to finger rustle. External auditory canals without significant cerumen or debris. Tympanic membrane intact without effusion, retraction or perforation. Nose: Dorsum straight. Nares patent. On anterior rhinoscopy, the mucosa is moist. Anterior turbinates 2+. Septum deviates left. No mucopurulent discharge or polyps. Oral Cavity: Lips without cutaneous lesion. Oral competence intact. Upper plate. Lower incisors and canines intact. Oral mucosa pink and moist. No masses or lesions. Inhaler residue or colten on soft palate. Tongue mobile. Floor of mouth without mass or lesion. Oropharynx: No mucosal masses or lesions. Tonsils 1+. Soft palate elevates symmetrically. Neck: Soft, non-tender. No appreciable lymphadenopathy. Trachea midline. Laryngeal landmarks palpable with normal crepitus. Larynx elevates normally with swallowing. Thyrohyoid muscles non tender. Well-healed lower cervical incision consistent with prior thyroidectomy. 2 cm ballotable fullness in left neck that gets bigger with valsalva at the level of the thyroid cartilage Respiratory: Breathing comfortably. No suprasternal/suprclavicular retractions or accessory muscle use. No stridor. Clear to auscultation bilaterally. Cardiovascular: Regular rate and rhythm. No murmurs, rubs or gallops. Abdomen: Soft, non-tender to palpation. Bowel sounds present. Psychiatric: Normal mood and affect. Normal behavior. LARYNGOSCOPY: After applying topical decongestant and anesthetic, flexible laryngoscopy was performed using flexible scope through the right nare. The nasal passage had some mucus, but was without polyposis or mucopurulent secretions. The nasopharyngeal mucosa appeared normal. The fossa of Rosenmuller was clear and the eustachian tube openings were without mass or lesion. The tongue base was symmetric and without mucosal mass or lesion. The vallecula was clear. The epiglottis was upright. The aryepiglottic folds [...] subglottis revealed no mucosal lesions or stenosis. CT Neck 02/05/18: I reviewed the right CT neck. 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 Assessment and Plan: ASSESSMENT: 1. Mixed laryngocele PLAN: I have reviewed my findings with Ms. Macias and her daughter. 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 This has been infected , causing her issues in the past. I do recommend removal. I also counseled her that I need to perform laryngoscopy during the procedure as there is a small chance that this is secondary to a tumor not visible on in-office laryngoscopy. She has a pretty significant pulmonary history and so she will need PAT. I answered all her questions. We will try to get her scheduled for this in the near future. In the presence of Elise Ortiz MD, I have taken down these notes, Kurt Galicia. 02/27/2018 2:32 PM in this encounter Plan of Treatment Not on fileas of this encounter Visit Diagnoses Diagnosis Dysphonia - Primary Laryngocele Other congenital anomaly of larynx, trachea, and bronchus
--- OUTSIDE RECORDS SUMMARY | 2018-04-29 06:24 | XMS REPORT | Encounter Summary ---
Author Author [facility] Organization [facility] Address Unknown Phone Unavailable Care Team Providers Care Associate Chief Nurse Name Role Phone PCP Unavailable Reason for Visit * Reason Comments Navigation Assessment Encounter Details Date Type Department Care Team Description 02/19/2018 Telephone [facility] Elise Ortiz MD Navigation Assessment Cancer Center - Exam [address] [facility] [address] [place] [address] [address] [facility] [phone] [place] [address] [phone] Social History Tobacco Use Types Packs/Day Years Used Date Never Assessed Sex Assigned at Date Recorded Not on file as of this encounter Miscellaneous Notes * Telephone Encounter - Janice Bishop RN - 02/19/2018 8:05 AM CDT Navigation Intake Assessment Document Patient Name: Angeline Macias : 1955 Insurance: Medicare and [employer] Appointment Info: 02/27/[address] Ortiz at [facility] Diagnosis & Reason for Visit: Left hypopharyngeal diverticulum Physician Info: Referring Physician: Alexandre Diaz [phone] Location of Films: PACS Location of Pathology: none History of Present Illness: 62 yr old female is referred for evaluation of right thyroid nodule and left hypopharyngeal diverticulum. Pt and daughter would like to evaluate and treat the diverticulum first and then address the thyroid nodules afterwards. She has history of a left thyroidectomy in 2002, not cancer per daughter report. Angeline initially began having left sided sore throat in September, and was treated with antibiotics without improvement. On exam it was noted that she had swelling lateral to larynx on left side. With heat and massage to that area, she could feel drainage going into her throat. She is able to eat but has some difficulty with swallowing liquids. 01/24/18 CT neck wc: left lateral hypopharyngeal diverticulum ; 3.7 x 2.2 x 3.1 cm collection of air extending from left lateral vallecula in hypopharynx, lateral to the epiglottis at level of C3. 01/06/18 US head and neck soft tissue: Suspicious for left lateral neck tracheal diverticulum in region of concern. Diffusely heterogenous multinodular thyroid with largest nodule measuring 1.9 x 1.1 x 1.1, previously 1.3 x 1.9 cm in 2016 01/02/18 T3 0.79; TSH 0.85; FT4 1.04 Comments: Pt has COPD and uses 02 at night. She is a current smoker. in this encounter Plan of Treatment Not on fileas of this encounter Visit Diagnoses Not on filein this encounter
--- OUTSIDE RECORDS SUMMARY | 2018-04-29 06:24 | XMS REPORT | Encounter Summary ---
Author Author [facility] Organization [facility] Address Unknown Phone Unavailable Care Team Providers Care Concrete Finishing Machine Operator Name Role Phone Zaria Amaral FRAME STRAIGHTENER PCP Reason for Visit * Reason Comments Imaging CT done at [facility] on 03/18 Encounter Details Date Type Department Care Team Description 03/24/2018 Telephone [facility] Elise Ortiz MD Imaging ( CT done at [facility] - ENT [address] [facility] [place] on 03/18) [facility] [address] [place] [address] [address] [facility] [phone] [place] [address] Social History Tobacco Use Types [...] Telephone Encounter - Ana Goins LPN - 03/24/2018 8:16 AM CDT Faxed Stat request for images and report of CT chest w/ contrast that was done on 03/18/18. Requested images and report via [facility], however was advised this office would need to call to obtain the images and report. Telephone call to Yevtte Levin went to a [facility] direct number for return phone call. Faxed request for images to be clouded and report to be faxed, to [phone]. in this encounter Plan of Treatment Not on fileas of this encounter Visit Diagnoses Not on filein this encounter
--- OUTSIDE RECORDS SUMMARY | 2018-04-29 06:25 | XMS REPORT ---
Author Author Madeline Kelley [facility] Address [address] [place], [place] [id number] Care Team Providers Care [place]ade Hardware Installer Name Role Phone Madeline Kelley PCP Madeline Kelley PreferredProvider Allergies and Adverse Reactions Name Reaction Notes No known allergies Plan of Treatment Not available. Medications Active Name Start Date Estimated Completion Date SIG Comments Breo Ellipta 200-25 mcg/dose inhalation blister with device inhale 1 puff by inhalation route once daily at the same time each day ProAir HFA 90 mcg/actuation inhalation HFA aerosol inhaler ipratropium bromide 0.02 % inhalation solution inhale 1.25 milliliters ( 250 mcg) via nebulizer by inhalation route 4 times per day montelukast 10 mg oral tablet 06/27/2017 take 1 tablet (10 mg) by oral route once daily in the evening for 90 days amoxicillin 500 mg oral capsule 10/03/2017 take 1 capsule (500 mg) by oral route 3 times per day for 10 days Name Start Date Expiration Date SIG Comments Zithromax 250 mg oral tablet 11/08/2016 11/13/2016 take 2 tablets (500 mg) by oral route once daily for 1 day then 1 tablet (250 mg) by oral route once daily for 4 days Zithromax 250 mg oral tablet 04/29/2017 05/04/2017 take 2 tablets (500 mg) by oral route once daily for 1 day then 1 tablet (250 mg) by oral route once daily for 4 days Discontinued Name Start Date Discontinued Date SIG Comments cetirizine 10 mg oral tablet 12/24/2016 take 1 tablet (10 mg) by oral route once daily Diflucan 150 mg oral tablet 04/29/2017 06/27/2017 TAKE 1 DAILY FOR 3 DAYS FOR THRUSH AND THEN 1 TAB EVERY 2 WEEKS TO KEEP GONE FROM INHALERS Levaquin 500 mg oral tablet 08/14/2017 10/03/2017 take 1 tablet (500 mg) by oral route once daily for 10 days Problem List Not available. Vital Signs Date Time BP-Sys(mm[Hg] BP-Nelly(mm[Hg]) HR(bpm) RR(rpm) Temp WT HT HC BMI BSA BMI Percentile O2 Sat(%) 10/03/2017 10:05:00 AM 116 mmHg 70 mmHg 120 bpm 22 rpm 100.1 F 128.25 lbs 66 in 20.70 kg/m2 1.65 m2 86 % 08/14/2017 1:42:00 PM 128 mmHg 78 mmHg 104 bpm 24 rpm 100.4 F 132.25 lbs 66 in 21.3455 kg/m 1.6714 m 90 % 04/29/2017 10:53:00 AM 122 mmHg 68 mmHg 88 bpm 18 rpm 99.1 F 137 lbs 66 in 22.11 kg/m2 1.70 m2 92 % 11/08/2016 2:57:00 PM 108 mmHg 64 mmHg 116 bpm 22 rpm 101.4 F 143.125 lbs 66 in 23.1007 kg/m 1.7387 m 82 % Social History Name Description Comments Tobacco Current every day smoker Alcohol Use - Occasional Caffeine Current some day Disabled History of Procedures Date Ordered Description Order Status 11/08/2016 12:00 AM THER/PROPH/DIAG INJ SC/IM Reviewed 11/08/2016 12:00 AM Decadron 4mg Injection Reviewed 11/08/2016 12:00 AM Depo-Medrol 40mg Injection Reviewed 11/08/2016 12:00 AM Lincocin, Up to 300 Mg [facility]#[id number] Reviewed 04/29/2017 12:00 AM THER/PROPH/DIAG INJ SC/IM Reviewed 04/29/2017 12:00 AM Decadron 4mg Injection Reviewed 04/29/2017 12:00 AM Depo-Medrol 40mg Injection Reviewed 08/14/2017 12:00 AM COMPLETE CBC W/AUTO DIFF WBC Reviewed 08/14/2017 12:00 AM COMPREHEN METABOLIC PANEL Reviewed 08/14/2017 12:00 AM THER/PROPH/DIAG INJ SC/IM Reviewed 08/14/2017 12:00 AM ALLERGEN SPECIFIC IGE Reviewed 08/14/2017 12:00 AM ROUTINE VENIPUNCTURE Reviewed 08/14/2017 12:00 AM Decadron 4mg Injection Reviewed 08/14/2017 12:00 AM Depo-Medrol 40mg Injection Reviewed 10/03/2017 12:00 AM Bicillin CR Injection 1.2 million units Reviewed Results Summary Date and Description Results 08/14/2017 5:55 PM WBC 10.8 RBC 4.54 HGB 14.30 g/dLHCT 44.30 %MCV 98.0 fLMCH 31.50 pgMCHC 32.30 g/dLRDW SD 50 RDW CV 13.80 %MPV 9.50 fLPLT 260 NRBC# 0.00 NRBC% 0.0 %NEUT 79.70 %%LYMP 9.90 %%MONO 8.60 %%EOS 0.90 %%BASO 0.60 %#NEUT 8.58 #LYMP 1.06 #MONO 0.93 #EOS 0.10 #BASO 0.06 MANUAL DIFF NOT IND GLUCOSE 86.0 mg/dLSODIUM 139.0 mmol/LPOTASSIUM 3.60 mmol/LCHLORIDE 99.0 mmol/LCO2 32.0 mmol/LBUN 8.0 mg/dLCREATININE 0.50 mg/dLSGOT/AST 12.0 IU/LSGPT/ALT 11.0 IU/LALK PHOS 83.0 IU/LTOTAL PROTEIN 6.0 g/dLALBUMIN 3.30 g/dLTOTAL BILI 0.30 mg/ dLCALCIUM 8.50 mg/dLAGE 61 GFR NonAA 126 GFR AA 153 eGFR >60 mL/min/1.73meGFR AA* >60 08/14/2017 5:56 PM E305-TaW Cow Dander <0.10 R653-GuY Goose Feathers <0.10 E085 -IgE Chicken Feathers <0.10 W023-HtG Duck Feathers <0.10 T823-LxL Mucor racemosus <0.10 O329-MlR Veronica albicans <0.10 J440-RgD Setomelanommarostrat 0.12 G054-IkV Aureobasidipullulans <0.10 D676-TqG Phoma betae 0.48 K457-HjR Stemphyliumherbarum <0.10 History Of Immunizations Not available. History of Past Illness Name Date of Onset Comments Emphysema Thyroid disorder Cough Nov 08 2016 3:00PM Acute pharyngitis due to other specified organisms Nov 08 2016 3:00PM Acute pansinusitis, recurrence not specified Nov 08 2016 3:00PM Unilateral emphysema b 2016 3:00PM Acute bronchitis, unspecified organism Apr 29 2017 10:57AM Shortness Of Breath Apr 29 2017 10:57AM Acute recurrent frontal sinusitis Apr 29 2017 10:57AM Candidiasis of mouth Apr 29 2017 10:57AM COPD (chronic obstructive pulmonary disease) with acute bronchitis Apr 29 2017 10:57AM Allergic rhinitis due to animal hair and dander, unspecified chronicity Aug 14 2017 1:43PM Acute bronchitis due to other specified organisms Aug 14 2017 1:43PM COPD (chronic obstructive pulmonary disease) with chronic bronchitis Aug 14 2017 1:43PM Purulent rhinitis Aug 14 2017 1:43PM Parotitis, acute Oct 03 2017 10:09AM Lymphadenopathy Oct 03 2017 10:09AM Payers Insurance Name Company Name Plan Name Plan Number Policy Number Policy Group Number Start Date Medicare RHC Medicare RHC [id number] N/A Aetna Medicare Supplement Aetna Medicare Supplement [id number] N/A Medicare Part B Medicare Of [place] [id number] N/A Medicare Part A Medicare - Lab/Xray [id number] N/A History of Encounters Visit Date Visit Type Provider 10/03/2017 Office visit Madeline Kelley APRN 08/14/2017 Office visit Madeline Kelley APRN 04/29/2017 Office visit Madeline Kelley APRN 11/08/2016 Office visit Madeline Kelley APRN
--- OUTSIDE RECORDS SUMMARY | 2018-04-29 06:25 | XMS REPORT ---
Author Author Madeline Kelley [facility] Address [address] [place], [place] [address] Care Team Providers Care General Cleaner Name Role Phone Madeline Kelley PCP Madeline Kelley PreferredProvider Allergies and Adverse Reactions Name Reaction Notes No known allergies Plan of Treatment Not available. Medications Active Name Start Date Estimated Completion Date SIG Comments Breo Ellipta 200-25 mcg/dose inhalation blister with device inhale 1 puff by inhalation route once daily at the same time each day ipratropium bromide 0.02 % inhalation solution inhale 1.25 milliliters ( 250 mcg) via nebulizer by inhalation route 4 times per day montelukast 10 mg oral tablet 06/27/2017 take 1 tablet (10 mg) by oral route once daily in the evening for 90 days Ventolin HFA 90 mcg/actuation inhalation HFA aerosol inhaler 01/02/2018 inhale 1 - 2 puffs (90 - 180 mcg) by inhalation route every 6 hours as needed for 90 days Zyrtec 10 mg oral tablet 01/02/2018 take 1 tablet (10 mg) by oral route once daily for 90 days Name Start Date Expiration Date SIG [...] (10 mg) by oral route once daily ProAir HFA 90 mcg/actuation inhalation HFA aerosol inhaler 01/02/2018 Diflucan 150 mg oral tablet 04/29/2017 06/27/2017 TAKE 1 DAILY FOR 3 DAYS FOR THRUSH AND THEN 1 TAB EVERY 2 WEEKS TO KEEP GONE FROM INHALERS Levaquin 500 mg oral tablet 08/14/2017 10/03/2017 take 1 tablet (500 mg) by oral route once daily for 10 days amoxicillin 500 mg oral capsule 10/03/2017 01/02/2018 take 1 capsule (500 mg ) by oral route 3 times per day for 10 days Problem List Not available. Vital Signs Date Time BP-Sys(mm[Hg] BP-Nelly(mm[Hg]) HR(bpm) RR(rpm) Temp WT HT HC BMI BSA BMI Percentile O2 Sat(%) 01/02/2018 8:39:00 AM 118 mmHg 68 mmHg 84 bpm 20 rpm 97.4 F 129.375 lbs 66 in 20.8815 kg/m 1.6531 m 92 % 10/03/2017 10:05:00 AM 116 mmHg 70 mmHg [...] 12:00 AM Lincocin, Up to 300 Mg [facility]#6290-4053-88 Reviewed 04/29/2017 12:00 AM THER/PROPH/DIAG INJ SC/IM [...] Bicillin CR Injection 1.2 million units Reviewed 01/02/2018 12:00 AM Annual wellness visit, Medicare *Subsequent Visits* Reviewed 01/02/2018 12:00 AM Annual depression screening, 15 minutes Reviewed 01/02/2018 12:00 AM LIPID PANEL Reviewed 01/02/2018 12:00 AM US EXAM OF HEAD AND NECK Reviewed 01/02/2018 12:00 AM COMPLETE CBC W/AUTO DIFF WBC Reviewed 01/02/2018 12:00 AM COMPREHEN METABOLIC PANEL Reviewed 01/02/2018 12:00 AM ASSAY TRIIODOTHYRONINE (T3) Reviewed 01/02/2018 12:00 AM ASSAY OF FREE THYROXINE Reviewed 01/02/2018 12:00 AM ASSAY THYROID STIM HORMONE Reviewed 01/02/2018 12:00 AM ASSAY OF MAGNESIUM Reviewed 01/02/2018 12:00 AM ROUTINE VENIPUNCTURE Reviewed 01/23/2018 12:[address] SOFT TISSUE NECK W/DYE Reviewed Results Summary Date and Description Results [...] >60 mL/min/1.73meGFR AA* >60 08/14/2017 5:56 PM R015-WkJ Cow Dander <0.10 C335-YpN Goose Feathers <0.10 E085 -IgE Chicken Feathers <0.10 C510-KhU Duck Feathers <0.10 C260-VgZ Mucor racemosus <0.10 S256-UvM Veronica albicans <0.10 D297-KdT Setomelanommarostrat 0.12 X591-RzH Aureobasidipullulans <0.10 D266-HhI Phoma betae 0.48 K048-RmP Stemphyliumherbarum <0.10 01/02/2018 9:10 AM WBC 7.1 RBC 5.22 HGB 16.50 g/dLHCT 50.70 %MCV 97.0 fLMCH 31.60 pgMCHC 32.50 g/dLRDW SD 52 RDW CV 14.40 %MPV 10.30 fLPLT 171 NRBC# 0.00 NRBC% 0.0 %NEUT 66.80 %%LYMP 21.60 %%MONO 8.90 %%EOS 1.30 %%BASO 1.10 %#NEUT 4.73 #LYMP 1.53 #MONO 0.63 #EOS 0.09 #BASO 0.08 MANUAL DIFF NOT IND GLUCOSE 82.0 mg/dLSODIUM 142.0 mmol/LPOTASSIUM 4.10 mmol/LCHLORIDE 103.0 mmol/LCO2 31.0 mmol/LBUN 14.0 mg/dLCREATININE 0.60 mg/dLSGOT/AST 18.0 IU/LSGPT/ALT 10.0 IU/ LALK PHOS 102.0 IU/LTOTAL PROTEIN 7.40 g/dLALBUMIN 4.20 g/dLTOTAL BILI 0.60 mg/ dLCALCIUM 9.10 mg/dLAGE 62 GFR NonAA 102 GFR AA 124 eGFR >60 mL/min/1.73meGFR AA* >60 TRIGLYCERIDES 67.0 mg/dLCHOLESTEROL 220.0 mg/dLHDL 65.0 mg/dLTOT CHOL/ HDL 3.4 LDL (CALC) 142.0 mg/dLMAGNESIUM 2.60 mg/dLT3 TOTAL 79.0 ng/dLTSH 0.850 uIU/mLFREE T4 1.04 History Of Immunizations Not available. History of Past Illness Name Date of Onset Comments Emphysema Thyroid disorder Cough Nov 08 2016 3:00PM Acute pharyngitis due to other specified organisms Nov 08 2016 3:00PM Acute pansinusitis, recurrence not specified Nov 08 2016 3:00PM Unilateral emphysema Nov 08 2016 3:00PM Acute bronchitis, unspecified organism Apr [...] 2017 10:09AM Lymphadenopathy Oct 03 2017 10:09AM General medical examination; routine general medical examination at a health care facility Jan 02 2018 8:41AM Soft tissue mass Jan 02 2018 8:41AM COPD (chronic obstructive pulmonary disease) Jan 02 2018 8:41AM Thyroid condition Jan 02 2018 8:41AM Hyperlipidemia, unspecified hyperlipidemia type Jan 02 2018 8:41AM Thyroid nodule Jan 23 2018 4:28PM Abnormal ultrasound Jan 23 2018 4:28PM Tracheal diverticulum Jan 23 2018 4:28PM Payers Insurance Name Company Name Plan Name Plan Number Policy Number Policy Group Number Start Date Medicare [facility] Medicare [facility] [id number] N/A Aetna Medicare Supplement Aetna Medicare Supplement [id number] N/A Medicare Part B Medicare Of [place] [id number] N/A Medicare Part A Medicare - Lab/Xray [id number] N/A History of Encounters Visit Date Visit Type Provider 01/02/2018 Office visit Madeline Kelley LEVELMAN 10/03/2017 Office visit Madeline Kelley LEVELMAN 08/14/2017 Office visit Madeline Kelley LEVELMAN 04/29/2017 Office visit Madeline Kelley LEVELMAN 11/08/2016 Office visit Madeline Kelley LEVELMAN
--- OUTSIDE RECORDS SUMMARY | 2018-04-29 06:25 | XMS REPORT ---
Author Author Madeline Kelley [facility] Address [address] [place], [place] [id number] Care Team Providers Care Custom Frame Assembler Name Role Phone Madeline Kelley PCP [phone] Madeline Kelley PreferredProvider [phone] Allergies and Adverse Reactions Name Reaction Notes [...] per day montelukast 10 mg oral tablet 12/24/2016 06/22/2017 take 1 tablet (10 mg) by oral route once daily in the evening for 90 days Name Start Date Expiration [...] (10 mg) by oral route once daily Problem List Not available. Vital Signs Date Time BP-Sys(mm[Hg] BP-Nelly(mm[Hg]) HR(bpm) RR(rpm) Temp WT HT HC BMI BSA BMI Percentile O2 Sat(%) 11/08/2016 2:57:00 PM 108 mmHg 64 mmHg 116 bpm 22 rpm 101.4 F 143.125 lbs 66 in 23.10 kg/m2 1.74 m2 82 % Social History Name Description Comments Tobacco Former smoker quit 3 days ago- smoked over 40 years Alcohol Use - Occasional Caffeine Current some day Disabled History of Procedures Date Ordered Description Order Status 11/08/2016 12:00 AM THER/PROPH/DIAG INJ SC/IM Reviewed 11/08/2016 12:00 AM Decadron 4mg Injection Reviewed 11/08/2016 12:00 AM Depo-Medrol 40mg Injection Reviewed 11/08/2016 12:00 AM Lincocin, Up to 300 Mg [facility]#5798-8963-92 Reviewed Results Summary Not available. History Of Immunizations Not available. History of Past Illness Name Date of Onset Comments Emphysema Thyroid disorder Cough Nov 08 2016 3:00PM Acute pharyngitis due to other specified organisms Nov 08 2016 3:00PM Acute pansinusitis, recurrence not specified Nov 08 2016 3:00PM Unilateral emphysema Nov 08 2016 3:00PM Payers Insurance Name Company Name Plan Name Plan Number Policy Number Policy Group Number Start Date Medicare Part B Medicare Of [place] [id number] N/A Aetna Medicare Supplement Aetna Medicare Supplement [id number] N/A History of Encounters Visit Date Visit Type Provider 11/08/2016 Office visit Madeline Kelley APRN
--- OUTSIDE RECORDS SUMMARY | 2018-04-29 06:25 | XMS REPORT ---
Author Author Madeline Kelley [facility] Address [address] [place], [place] [id number] Care Team Providers Care Crystalizer Tender Name Role Phone Madeline Kelley PCP Madeline [...] 12:00 AM Lincocin, Up to 300 Mg [facility]#1729-0602-80 Reviewed 04/29/2017 12:00 AM THER/PROPH/DIAG INJ SC/IM [...] 12:[address] SOFT TISSUE NECK W/DYE Returned Results Summary Date and Description Results 08/14/2017 [...] >60 mL/min/1.73meGFR AA* >60 08/14/2017 5:56 PM M669-OpF Cow Dander <0.10 W698-OmD Goose Feathers <0.10 E085 -IgE Chicken Feathers <0.10 V663-DcM Duck Feathers <0.10 O087-CnR Mucor racemosus <0.10 W143-YoT Veronica albicans <0.10 O876-NfS Setomelanommarostrat 0.12 Z507-LgS Aureobasidipullulans <0.10 R207-IbW Phoma betae 0.48 H290-EfZ Stemphyliumherbarum <0.10 01/02/2018 9:10 AM WBC 7.1 [...] Number Policy Group Number Start Date Medicare [facility] Medicare [facility] [id number] N/A Aetna Medicare Supplement Aetna Medicare Supplement [id number] N/A Medicare Part B Medicare Of [place] [id number] N/A Medicare Part A Medicare - Lab/Xray [id number] N/A History of Encounters Visit Date Visit Type Provider 01/02/2018 Office visit Madeline Kelley POLICE LIAISON 10/03/2017 Office visit Madeline Kelley POLICE LIAISON 08/14/2017 Office visit Madeline Kelley POLICE LIAISON 04/29/2017 Office visit Madeline Kelley POLICE LIAISON 11/08/2016 Office visit Madeline Kelley POLICE LIAISON
--- OUTSIDE RECORDS SUMMARY | 2018-04-29 06:26 | XMS REPORT ---
Author Author Madeline Kelley [facility] Address [address] [place], [place] [id number] Care Team Providers Care Impress Associate Name Role Phone Madeline Kelley PCP Madeline [...] 12:00 AM Lincocin, Up to 300 Mg [facility]#[id number] Reviewed 04/29/2017 12:00 AM THER/PROPH/DIAG INJ SC/IM [...] >60 mL/min/1.73meGFR AA* >60 08/14/2017 5:56 PM W950-LdW Cow Dander <0.10 A522-EpD Goose Feathers <0.10 E085 -IgE Chicken Feathers <0.10 I575-GpF Duck Feathers <0.10 G396-ItC Mucor racemosus <0.10 S643-QeK Veronica albicans <0.10 E362-PtO Setomelanommarostrat 0.12 W442-YuW Aureobasidipullulans <0.10 J603-IrK Phoma betae 0.48 Z905-CmP Stemphyliumherbarum <0.10 01/02/2018 9:10 AM WBC 7.1 [...] [facility] Medicare [facility] [id number] N/A Aetna Medicare Supplement Aetna Medicare Supplement [id number] N/A Medicare Part B Medicare Of [place] [id number] N/A Medicare Part A Medicare - Lab/Xray [id number] N/A History of Encounters Visit Date Visit Type Provider 01/02/2018 Office visit Madeline Kelley NATIONAL SALES ASSOCIATE 10/03/2017 Office visit Madeline Kelley NATIONAL SALES ASSOCIATE 08/14/2017 Office visit Madeline Kelley NATIONAL SALES ASSOCIATE 04/29/2017 Office visit Madeline Kelley NATIONAL SALES ASSOCIATE 11/08/2016 Office visit Madeline Kelley NATIONAL SALES ASSOCIATE
--- OUTSIDE RECORDS SUMMARY | 2018-04-29 06:26 | XMS REPORT ---
Author Author Madeline Kelley [facility] Address [address] [place], [place] [id number] Care Team Providers Care School Library Media Program Director Name Role Phone Madeline Kelley PCP Madeline [...] daily in the evening for 90 days Levaquin 500 mg oral tablet 08/14/2017 take 1 tablet (500 mg) by oral route once daily for 10 days Name Start Date Expiration [...] 2 WEEKS TO KEEP GONE FROM INHALERS Problem List Not available. Vital Signs Date Time BP-Sys(mm[Hg] BP-Nelly(mm[Hg]) HR(bpm) RR(rpm) Temp WT HT HC BMI BSA BMI Percentile O2 Sat(%) 08/14/2017 1:42:00 PM 128 mmHg 78 mmHg 104 bpm 24 rpm 100.4 F 132.25 lbs 66 in 21.35 kg/m2 1.67 m2 90 % 04/29/2017 10:53:00 AM 122 mmHg 68 mmHg 88 bpm 18 rpm 99.1 F 137 lbs 66 in 22.1122 kg/m 1.7011 m 92 % 11/08/2016 2:57:00 PM 108 mmHg [...] 12:00 AM Lincocin, Up to 300 Mg [facility]#[id number] Reviewed 04/29/2017 12:00 AM THER/PROPH/DIAG INJ SC/IM [...] 08/14/2017 12:00 AM Depo-Medrol 40mg Injection Reviewed Results Summary Date and Description Results [...] AA 153 eGFR >60 mL/min/1.73meGFR AA* >60 History Of Immunizations Not available. History of [...] 1:43PM Purulent rhinitis Aug 14 2017 1:43PM Payers Insurance Name Company Name Plan Name Plan Number Policy Number Policy Group Number Start Date Medicare Part B Medicare Of [place] [id number] N/A Aetna Medicare Supplement Aetna Medicare Supplement [id number] N/A History of Encounters Visit Date Visit Type Provider 08/14/2017 Office visit Madeline Kelley APRN 04/29/2017 Office visit Madeline Kelley APRN 11/08/2016 Office visit Madeline Kelley APRN
--- OUTSIDE RECORDS SUMMARY | 2018-04-29 06:26 | XMS REPORT ---
Author Author Madeline Kelley [facility] Address [address] [place] [employer], [place] [phone] Care Team Providers Care Manager Payment Name Role Phone Madeline Kelley PCP Madeline Kelley PreferredProvider Allergies and Adverse Reactions Name Reaction Notes No known allergies Plan of Treatment Planned Activity Comments Planned Date Planned Time Plan/Goal CT NECK SOFT TISSUE W/CONTRAST 01/23/2018 12:00 AM Medications Active Name Start Date Estimated Completion [...] 12:00 AM Lincocin, Up to [address] [facility]#[id number] Reviewed 04/29/2017 12:00 AM THER/PROPH/DIAG INJ SC/IM [...] Reviewed 01/02/2018 12:00 AM ROUTINE VENIPUNCTURE Reviewed Results Summary Date and Description Results [...] >60 mL/min/1.73meGFR AA* >60 08/14/2017 5:56 PM V415-DaM Cow Dander <0.10 N293-TeP Goose Feathers <0.10 E085 -IgE Chicken Feathers <0.10 M151-UlT Duck Feathers <0.10 T093-CxK Mucor racemosus <0.10 K685-YfF Veronica albicans <0.10 Z194-TbW Setomelanommarostrat 0.12 K865-WkB Aureobasidipullulans <0.10 C624-XdW Phoma betae 0.48 X250-YrB Stemphyliumherbarum <0.10 01/02/2018 9:10 AM WBC 7.1 [...] Group Number Start Date Medicare RHC Medicare [facility] [id number] N/A Aetna Medicare Supplement Aetna Medicare Supplement [id number] N/A Medicare Part B Medicare Of [place] [id number] N/A Medicare Part A Medicare - Lab/Xray [id number] N/A History of Encounters Visit Date Visit Type Provider 01/02/2018 Office visit Madeline Kelley CLINICAL COORDINATOR 10/03/2017 Office visit Madeline Kelley CLINICAL COORDINATOR 08/14/2017 Office visit Madeline Kelley CLINICAL COORDINATOR 04/29/2017 Office visit Madeline Kelley CLINICAL COORDINATOR 11/08/2016 Office visit Madeline Kelley CLINICAL COORDINATOR
--- OUTSIDE RECORDS SUMMARY | 2018-04-29 06:27 | XMS REPORT ---
Author Author Madeline Kelley [facility] Address [address] [place], [place] [address] Care Team Providers Care Glass Novelty Maker Name Role Phone Madeline Kelley PCP Madeline [...] 12:00 AM Lincocin, Up to 300 Mg [facility]#[id number] Reviewed 04/29/2017 12:00 AM THER/PROPH/DIAG INJ SC/IM [...] >60 mL/min/1.73meGFR AA* >60 08/14/2017 5:56 PM T923-JwL Cow Dander <0.10 R015-BgH Goose Feathers <0.10 E085 -IgE Chicken Feathers <0.10 N993-GyY Duck Feathers <0.10 P276-ArC Mucor racemosus <0.10 N523-KdU Veronica albicans <0.10 H542-IoB Setomelanommarostrat 0.12 Q900-XtM Aureobasidipullulans <0.10 U407-SyU Phoma betae 0.48 K569-XdH Stemphyliumherbarum <0.10 01/02/2018 9:10 AM WBC 7.1 [...] Number Policy Group Number Start Date Medicare [facility] Medicare [facility] [id number] N/A Aetna Medicare Supplement Aetna Medicare Supplement [id number] N/A Medicare Part B Medicare Of [place] [id number] N/A Medicare Part A Medicare - Lab/Xray [id number] N/A History of Encounters Visit Date Visit Type Provider 01/02/2018 Office visit Madeline Kelley LIBERAL ARTS TEACHER 10/03/2017 Office visit Madeline Kelley LIBERAL ARTS TEACHER 08/14/2017 Office visit Madeline Kelley LIBERAL ARTS TEACHER 04/29/2017 Office visit Madeline Kelley LIBERAL ARTS TEACHER 11/08/2016 Office visit Madeline Kelley LIBERAL ARTS TEACHER
--- OUTSIDE RECORDS SUMMARY | 2018-04-29 06:27 | XMS REPORT ---
Author Author Madeline Kelley [facility] Address [address] [place], [place] [address] Care Team Providers Care Customer Support Advisor Name Role Phone Madeline Kelley PCP Madeline Kelley PreferredProvider Allergies and Adverse Reactions Name Reaction Notes No known allergies Plan of Treatment Planned Activity Comments Planned Date Planned Time Plan/Goal US SOFT TISSUES HEAD AND NECK 01/02/2018 12:00 AM Medications Active Name Start Date [...] rpm 97.4 F 129.375 lbs 66 in 20.88 kg/m2 1.65 m2 92 % 10/03/2017 10:05:00 AM 116 mmHg 70 mmHg 120 bpm 22 rpm 100.1 F 128.25 lbs 66 in 20.6999 kg/m 1.6459 m 86 % 08/14/2017 1:42:00 PM 128 mmHg [...] AM Lincocin, Up to 300 Mg [facility]#9524-7098-15 Reviewed 04/29/2017 12:00 AM THER/PROPH/DIAG INJ SC/IM [...] minutes Reviewed 01/02/2018 12:00 AM LIPID PANEL Returned 01/02/2018 12:00 AM COMPLETE CBC W/AUTO DIFF WBC Returned 01/02/2018 12:00 AM COMPREHEN METABOLIC PANEL Returned 01/02/2018 12:00 AM ASSAY TRIIODOTHYRONINE (T3) Returned 01/02/2018 12:00 AM ASSAY OF FREE THYROXINE Returned 01/02/2018 12:00 AM ASSAY THYROID STIM HORMONE Returned 01/02/2018 12:00 AM ASSAY OF MAGNESIUM Returned 01/02/2018 12:00 AM ROUTINE VENIPUNCTURE Reviewed Results [...] >60 mL/min/1.73meGFR AA* >60 08/14/2017 5:56 PM I932-KhG Cow Dander <0.10 J714-JkK Goose Feathers <0.10 E085 -IgE Chicken Feathers <0.10 D705-AxH Duck Feathers <0.10 N113-BpP Mucor racemosus <0.10 D236-JlE Veronica albicans <0.10 F569-RtY Setomelanommarostrat 0.12 G567-XwO Aureobasidipullulans <0.10 U478-TzY Phoma betae 0.48 Z402-VnH Stemphyliumherbarum <0.10 History Of Immunizations Not available. [...] unspecified hyperlipidemia type Jan 02 2018 8:41AM Payers Insurance Name Company Name Plan Name Plan Number Policy Number Policy Group Number Start Date Medicare RHC Medicare RHC [id number] N/A Aetna Medicare Supplement Aetna Medicare Supplement [id number] N/A Medicare Part B Medicare Of [place] [id number] N/A Medicare Part A Medicare - Lab/Xray [id number] N/A History of Encounters Visit Date Visit Type Provider 01/02/2018 Office visit Madeline Kelley ROLLWAY MAN 10/03/2017 Office visit Madeline Kelley ROLLWAY MAN 08/14/2017 Office visit Madeline Kelley ROLLWAY MAN 04/29/2017 Office visit Madeline Kelley ROLLWAY MAN 11/08/2016 Office visit Madeline Kelley ROLLWAY MAN
--- OUTSIDE RECORDS SUMMARY | 2018-04-29 06:27 | XMS REPORT ---
Author Author Madeline Kelley [facility] Address [address] [place], [place] [address] Care Team Providers Care Junior Qa Analyst Name Role Phone Madeline Kelley PCP [phone] Madeline Kelley PreferredProvider [phone] Allergies and Adverse Reactions Name Reaction Notes [...] HC BMI BSA BMI Percentile O2 Sat(%) 04/29/2017 10:53:00 AM 122 mmHg 68 mmHg [...] AM Lincocin, Up to 300 Mg [facility]#3749-1632-87 Reviewed 04/29/2017 12:00 AM THER/PROPH/DIAG INJ SC/IM Reviewed 04/29/2017 12:00 AM Decadron 4mg Injection Reviewed 04/29/2017 12:00 AM Depo-Medrol 40mg Injection Reviewed Results Summary Not available. History Of [...] with acute bronchitis Apr 29 2017 10:57AM Payers Insurance Name Company Name Plan Name Plan Number Policy Number Policy Group Number Start Date Medicare Part B Medicare Of [place] [id number] N/A Aetna Medicare Supplement Aetna Medicare Supplement [id number] N/A History of Encounters Visit Date Visit Type Provider 04/29/2017 Office visit Madeline Kelley APRN 11/08/2016 Office visit Madeline Kelley APRN
[2018-04-29] MEDS ORDERED: NS IV 500 ML 500 ML IV PRN (06:31)
[2018-04-29] MEDS ORDERED: RT-ALBUTEROL/IPRATROPIUM 3 ML (DUONEB) VIAL ONE (06:36)
--- NOTE | 2018-04-29 06:40 | Progress Note-Pre Operative ---
Pre-Operative Progress Note H&P Reviewed The H&P was reviewed, patient examined and no changes noted. Date Seen by Provider: Apr 29, 2018 Time Seen by Provider: 06:40 Date H&P Reviewed: Apr 29, 2018 Time H&P Reviewed: 06:40 Pre-Operative Diagnosis: lung mass STEPHANIE XAVIER DO Apr 29, 2018 06:40
[2018-04-29] MEDS ORDERED: NS IV 500 ML 500 ML ONE (06:41)
--- NOTE | 2018-04-29 06:41 | Pre-Op Note & Conscious Sedat ---
Pre-Operative Progress Note H&P Reviewed The H&P was reviewed, patient examined and no changes noted. Date H&P Reviewed: Apr 29, 2018 Time H&P Reviewed: 06:40 Conscious Sedation Pre-Proced Time Reviewed: 06:40 ASA Class: 3 Airway Mallampati Classification: ([place] appropriate class) I. II. III, IV Lungs Heart ASA score ASA 1: a normal healthy patient ASA 2: a patient with a mild systemic disease (mid diabetes, controlled hypertension, obesity ASA 3: a patient with a severe systemic disease that limits activity (angina , COPD, prior Myocardial infarction) ASA 4: a patient with an incapacitating disease that is a constant threat to life (CHF, renal failure) ASA 5: a moribund patient not expected to survive 24 hrs. (ruptured aneurysm) ASA 6: a declared brain patient whose organs are being harvested. For emergent operations, add the letter E after the classification Grade 2 Sedation Plan: Analgesia, Amnesia, Plan communicated to team members, Discussed options with patient/fam, Discussed risks with patient/fam Note The patient is an appropriate candidate to undergo the planned procedure, sedation, and anesthesia. The patient immediately re-assessed prior to indication. STEPHANIE XAVIER DO Apr 29, 2018 06:41
[2018-04-29] MEDS ORDERED: MIDAZOLAM 2 MG/2 ML (VERSED) VIAL ONE ×3 (07:09→07:34)
[2018-04-29] MEDS ORDERED: fentaNYL INJECTION 100 MCG/2 ML AMP ONE (07:09)
[2018-04-29] MEDS: fentaNYL INJECTION 100 MCG/2 ML AMP IVP PRN ×3 (07:24→07:34)
[2018-04-29] MEDS: MIDAZOLAM 2 MG/2 ML (VERSED) VIAL IVP PRN ×3 (07:25→07:35)
--- NOTE | 2018-04-29 08:19 | Pulmonary Procedures ---
Pulmonary Procedures Date of Procedure Date of Service: Apr 29, 2018 Bronch Bronchoscopy with bronchoalveolar lavage (BAL), transbronchial washes and, Percepta brushes obtained . Preop DX lung mass Postop DX: same No endobronchial mass however copious amounts of secretions Complications: Pt became hypoxic with sedation and procedure was abandoned early. After informed consent obtained and formal time out pt was sedated using Fentanyl and Versed. Bronchoscope was advanced through the right nare and vocal cords. NO Lidocain was used secondary to patient's allergy. An anatomical tour was undertaken down to the segmental bronchi bilaterally. No endobronchial lesions noted. Pt did have copious amounts of secretions From the bilateral airways. A bronchoalveolar lavage (BAL), transbronchial washes was obtained from [facility]. and, Percepta brush was obtained from [facility]. Pt became hypoxic with sedation and procedure was abandoned early.Stat CXR is pending. Pt is very complex. Daughter who is a RN is worried about aspiration and states patient has been having progression of SOB and mucous production. I am going to order Levaquin and a Barium Swallow to be done as out patient. BAL was sent for C&S. PT was just recently on Augmentin x 10days. STEPHANIE XAVIER DO Apr 29, 2018 08:19
--- NOTE | 2018-04-29 08:34 | Diagnostic Imaging Report ---
INDICATION: Bronchoscopy. FINDINGS: The heart size is normal. There are right perihilar infiltrates. There is no pleural effusion or pneumothorax. Mediastinum is unremarkable. IMPRESSION: Right perihilar infiltrates. Possibility of underlying mass or adenopathy in the right hilum cannot be excluded. Dictated by: Dictated on workstation # [id number]
== END 2018-04-29 11:45 | disposition home or self-care (01) ==
LOC: ENDO 06:19
PROVIDERS: ATTEND Internal Medicine Critical Care Medicine
DX: R91.8 Other nonspecific abnormal finding of lung field (principal); R09.02 Hypoxemia; J44.9 Chronic obstructive pulmonary disease, unspecified; F17.201 Nicotine dependence, unspecified, in remission
CPT/HCPCS: 71045; 87070; 87077; 87101; 87116; 87186; 87205; 94640

== ENCOUNTER → 2018-05-20 | Outpatient (CLI) | payer MEDICARE, OTHER ==
[2018-05-20 11:15] LABS: BASOPHILS % (AUTO) 1 % (0-10); EOSINOPHILS # (AUTO) 0.1 10^3/uL (0.0-0.3); EOSINOPHILS % (AUTO) 2 % (0-10); HEMATOCRIT 45 % (35-52); HEMOGLOBIN 14.9 G/DL (11.5-16.0); LYMPHOCYTES # (AUTO) 1.3 X 10^3 (1.0-4.0); LYMPHOCYTES % (AUTO) 19 % (12-44); MEAN CORPUSCULAR HEMOGLOBIN 32 PG (25-34); MEAN CORPUSCULAR HGB CONC 33 G/DL (32-36); MEAN CORPUSCULAR VOLUME 97 FL (80-99); MEAN PLATELET VOLUME 9.9 FL (7.4-10.4); MONOCYTES # (AUTO) 0.8 X 10^3 (0.0-1.0); MONOCYTES % (AUTO) 11 % (0-12); NEUTROPHILS # (AUTO) 4.6 X 10^3 (1.8-7.8); NEUTROPHILS % (AUTO) 68 % (42-75); PLATELET COUNT 161 10^3/uL (130-400); RED BLOOD COUNT 4.66 10^6/uL (4.35-5.85); RED CELL DISTRIBUTION WIDTH 13.8 % (10.0-14.5); WHITE BLOOD COUNT 6.8 10^3/uL (4.3-11.0)
== END ==
LOC: LAB 11:01
PROVIDERS: ATTEND Nurse Practitioner Family
DX: J44.9 Chronic obstructive pulmonary disease, unspecified (principal); B96.5 Pseudomonas (aeruginosa) (mallei) (pseudomallei) as the cause of diseases classified elsewhere
CPT/HCPCS: 36415; 85025

== ENCOUNTER → 2018-07-22 | Outpatient (CLI) | payer MEDICARE, OTHER ==
--- NOTE | 2018-07-22 12:43 | Diagnostic Imaging Report ---
PROCEDURE: CT chest without contrast. TECHNIQUE: Multiple contiguous axial images were obtained through the chest without the use of intravenous contrast. INDICATION: COPD and abnormal chest x-ray. COMPARISON: Comparison is made to study of 03/18/2018. FINDINGS: Extensive centrilobular emphysema is again identified in both lungs. The peripheral parenchymal density in the superior segment of the right lower lobe with associated cavitation is stable or slightly decreased in conspicuity. There is, however a new subpleural density measuring approximately 3.4 x 1.5 cm in the posterior aspect of the right upper lobe just above the major fissure. This also has cavitary component extending into the deeper lung parenchyma. No definite pleural fluid is identified. There is no CT evidence of pathologic adenopathy. Calcified lymph node is seen in the left hilum. No other significant change is identified. IMPRESSION: Stable or decreased conspicuity of superior segment right lower lobe lesion which has undergone previous biopsy. There is, however new area of subpleural density with cavitary component in the posterior basilar right upper lobe. Correlation with previous biopsy results would be useful. This does have a similar appearance and if warranted, biopsy of this lesion could also be performed. Dictated by: Dictated on workstation # [id number]
== END ==
LOC: RAD 11:29
PROVIDERS: ATTEND Nurse Practitioner Family
DX: J44.9 Chronic obstructive pulmonary disease, unspecified (principal); R91.1 Solitary pulmonary nodule; R94.2 Abnormal results of pulmonary function studies; F17.201 Nicotine dependence, unspecified, in remission
CPT/HCPCS: 71250

== ENCOUNTER → 2018-08-26 | Outpatient (CLI) | payer MEDICARE, OTHER ==
--- NOTE | 2018-08-26 10:16 | Diagnostic Imaging Report ---
PROCEDURE: CT chest without contrast. TECHNIQUE: Multiple contiguous axial images were obtained through the chest without the use of intravenous contrast. INDICATION: Pneumonia. FINDINGS: The previous CT of the chest exam performed on 07/22/2018 noted an abnormal density involving the superior segment of the right lower lobe. The subpleural density in this area measured 3.4 x 1.5 cm. Report of this lesion has been biopsied although the results of the biopsy are not known to me. On this exam that density has decreased in size and now measures 1.5 x 2.0 cm. The cavitary lesion lying just anterior to this mass does measure somewhat larger on this exam and is now estimated to be 1.8 x 2.7 cm as opposed to 1.8 x 2.4 cm previously. The irregular parenchymal densities in both upper lobes seen previously are again evident. The densities in both upper lobes, particularly on the right do seem somewhat more conspicuous than on the prior exam and there may be an element of mild acute pneumonia/atelectasis superimposed on the patient's underlying chronic disease. There is a 1.2 x 2.4 cm alveolar/interstitial density in the left upper lobe which was not clearly present on the prior exam. The lung bases are clear. There is no sign of a pleural effusion. The heart size is stable when compared to the prior exam. Coronary artery calcifications are again noted. The aorta is not abnormally dilated. There is no obvious mediastinal or hilar adenopathy. The thyroid gland seems similar to the prior study. There is no obvious breast mass. According to our records the patient has not had a mammogram. If the patient had a recent (within the last) mammogram elsewhere, then no further imaging would be necessary. If the patient has not had a recent mammogram, then mammography would be recommended. The sections to the upper abdomen fail to show any sign of an acute abnormality. The suspected cyst in the left lobe of the liver near the falciform ligament is again evident and no different. There is no abnormality seen on the bone windows that would suggest a fracture or a destructive lesion. IMPRESSION: 1. There are mixed results. The lesion along the posterior aspect of the superior segment of the right lower lobe seen on the prior exam has decreased in size. However new patchy areas of pneumonia/atelectasis have developed in both upper lobes. Clinical follow up is recommended. 2. The overall appearance of the chest is otherwise stable. 3. There are emphysematous changes involving both lungs. 4. There is no obvious breast mass. Recommendations as above. Dictated by: Dictated on workstation # [id number]
== END ==
LOC: RAD 09:09
PROVIDERS: ATTEND Nurse Practitioner Family
DX: J18.9 Pneumonia, unspecified organism (principal); J43.9 Emphysema, unspecified; R91.1 Solitary pulmonary nodule; F17.201 Nicotine dependence, unspecified, in remission
CPT/HCPCS: 71250

== ENCOUNTER 2020-06-09 11:54 | Outpatient (RCR) | payer MEDICARE, OTHER ==
[2020-04-07 10:49] LABS: BASOPHILS # (AUTO) 0.1 10^3/uL (0.0-0.1); BASOPHILS % (AUTO) 1 % (0-10); EOSINOPHILS # (AUTO) 1.1 10^3/uL (0.0-0.3); EOSINOPHILS % (AUTO) 11 % (0-10); HEMATOCRIT 39 % (35-52); HEMOGLOBIN 12.6 G/DL (11.5-16.0); LYMPHOCYTES # (AUTO) 0.8 X 10^3 (1.0-4.0); LYMPHOCYTES % (AUTO) 8 % (12-44); MEAN CORPUSCULAR HEMOGLOBIN 31 PG (25-34); MEAN CORPUSCULAR HGB CONC 33 G/DL (32-36); MEAN CORPUSCULAR VOLUME 96 FL (80-99); MEAN PLATELET VOLUME 9.3 FL (7.4-10.4); MONOCYTES % (AUTO) 10 % (0-12); NEUTROPHILS # (AUTO) 7.2 X 10^3 (1.8-7.8); NEUTROPHILS % (AUTO) 71 % (42-75); PLATELET COUNT 262 10^3/uL (130-400); WHITE BLOOD COUNT 10.3 10^3/uL (4.3-11.0)
[2020-04-07 11:20] LABS: ALANINE AMINOTRANSFERASE 9 U/L (0-55); ALBUMIN 3.5 GM/DL (3.2-4.5); ALKALINE PHOSPHATASE 102 U/L (40-136); BILIRUBIN,TOTAL 0.5 MG/DL (0.1-1.0); BUN/CREATININE RATIO 13; CALCIUM 9.3 MG/DL (8.5-10.1); CARBON DIOXIDE 26 MMOL/L (21-32); CHLORIDE 106 MMOL/L (98-107); CREATININE SERUM 0.77 MG/DL (0.60-1.30); GFR ESTIMATED > 60; GLUCOSE 84 MG/DL (70-105); SODIUM 144 MMOL/L (135-145); TOTAL PROTEIN 6.7 GM/DL (6.4-8.2)
[2020-04-21 14:09] LABS: BASOPHILS # (AUTO) 0.1 10^3/uL (0.0-0.1); BASOPHILS % (AUTO) 1 % (0-10); EOSINOPHILS # (AUTO) 0.3 10^3/uL (0.0-0.3); EOSINOPHILS % (AUTO) 4 % (0-10); HEMATOCRIT 37 % (35-52); HEMOGLOBIN 11.9 G/DL (11.5-16.0); LYMPHOCYTES # (AUTO) 0.8 X 10^3 (1.0-4.0); LYMPHOCYTES % (AUTO) 11 % (12-44); MEAN CORPUSCULAR HEMOGLOBIN 30 PG (25-34); MEAN CORPUSCULAR HGB CONC 32 G/DL (32-36); MEAN CORPUSCULAR VOLUME 94 FL (80-99); MEAN PLATELET VOLUME 9.1 FL (7.4-10.4); MONOCYTES # (AUTO) 0.6 X 10^3 (0.0-1.0); MONOCYTES % (AUTO) 8 % (0-12); NEUTROPHILS # (AUTO) 5.5 X 10^3 (1.8-7.8); NEUTROPHILS % (AUTO) 77 % (42-75); PLATELET COUNT 254 10^3/uL (130-400); WHITE BLOOD COUNT 7.2 10^3/uL (4.3-11.0)
[2020-04-21 14:31] LABS: BUN/CREATININE RATIO 23; CALCIUM 8.9 MG/DL (8.5-10.1); CARBON DIOXIDE 26 MMOL/L (21-32); CHLORIDE 102 MMOL/L (98-107); CREATININE SERUM 0.62 MG/DL (0.60-1.30); GFR ESTIMATED > 60; GLUCOSE 101 MG/DL (70-105); POTASSIUM 3.7 MMOL/L (3.6-5.0); SODIUM 138 MMOL/L (135-145)
[2020-04-28 13:23] LABS: BASOPHILS # (AUTO) 0.1 10^3/uL (0.0-0.1); BASOPHILS % (AUTO) 2 % (0-10); EOSINOPHILS # (AUTO) 0.1 10^3/uL (0.0-0.3); EOSINOPHILS % (AUTO) 3 % (0-10); HEMATOCRIT 37 % (35-52); HEMOGLOBIN 11.8 G/DL (11.5-16.0); LYMPHOCYTES # (AUTO) 0.7 X 10^3 (1.0-4.0); LYMPHOCYTES % (AUTO) 20 % (12-44); MEAN CORPUSCULAR HEMOGLOBIN 31 PG (25-34); MEAN CORPUSCULAR HGB CONC 32 G/DL (32-36); MEAN CORPUSCULAR VOLUME 95 FL (80-99); MEAN PLATELET VOLUME 8.3 FL (7.4-10.4); MONOCYTES # (AUTO) 0.8 X 10^3 (0.0-1.0); MONOCYTES % (AUTO) 22 % (0-12); NEUTROPHILS % (AUTO) 53 % (42-75); PLATELET COUNT 247 10^3/uL (130-400); WHITE BLOOD COUNT 3.7 10^3/uL (4.3-11.0)
[2020-04-28 13:38] LABS: BUN/CREATININE RATIO 11; CARBON DIOXIDE 30 MMOL/L (21-32); CHLORIDE 105 MMOL/L (98-107); CREATININE SERUM 0.61 MG/DL (0.60-1.30); GFR ESTIMATED > 60; GLUCOSE 103 MG/DL (70-105); POTASSIUM 3.7 MMOL/L (3.6-5.0); SODIUM 142 MMOL/L (135-145)
[2020-05-05 08:57] LABS: BASOPHILS % (AUTO) 1 % (0-10); EOSINOPHILS % (AUTO) 0 % (0-10); HEMATOCRIT 38 % (35-52); HEMOGLOBIN 12.4 G/DL (11.5-16.0); LYMPHOCYTES # (AUTO) 0.4 X 10^3 (1.0-4.0); LYMPHOCYTES % (AUTO) 8 % (12-44); MEAN CORPUSCULAR HEMOGLOBIN 31 PG (25-34); MEAN CORPUSCULAR HGB CONC 33 G/DL (32-36); MEAN CORPUSCULAR VOLUME 95 FL (80-99); MEAN PLATELET VOLUME 8.6 FL (7.4-10.4); MONOCYTES # (AUTO) 0.3 X 10^3 (0.0-1.0); MONOCYTES % (AUTO) 5 % (0-12); NEUTROPHILS # (AUTO) 4.3 X 10^3 (1.8-7.8); NEUTROPHILS % (AUTO) 86 % (42-75); PLATELET COUNT 209 10^3/uL (130-400)
[2020-05-05 09:16] LABS: ALANINE AMINOTRANSFERASE 13 U/L (0-55); ALBUMIN 3.5 GM/DL (3.2-4.5); ALKALINE PHOSPHATASE 103 U/L (40-136); BILIRUBIN,TOTAL 0.3 MG/DL (0.1-1.0); BUN/CREATININE RATIO 12; CALCIUM 9.2 MG/DL (8.5-10.1); CARBON DIOXIDE 29 MMOL/L (21-32); CHLORIDE 106 MMOL/L (98-107); CREATININE SERUM 0.67 MG/DL (0.60-1.30); GFR ESTIMATED > 60; GLUCOSE 138 MG/DL (70-105); POTASSIUM 3.9 MMOL/L (3.6-5.0); SODIUM 143 MMOL/L (135-145); TOTAL PROTEIN 6.8 GM/DL (6.4-8.2)
[2020-05-12 13:19] LABS: BASOPHILS # (AUTO) 0.1 10^3/uL (0.0-0.1); BASOPHILS % (AUTO) 2 % (0-10); EOSINOPHILS # (AUTO) 0.1 10^3/uL (0.0-0.3); EOSINOPHILS % (AUTO) 2 % (0-10); HEMATOCRIT 36 % (35-52); HEMOGLOBIN 11.8 G/DL (11.5-16.0); LYMPHOCYTES # (AUTO) 0.7 X 10^3 (1.0-4.0); LYMPHOCYTES % (AUTO) 18 % (12-44); MEAN CORPUSCULAR HEMOGLOBIN 31 PG (25-34); MEAN CORPUSCULAR HGB CONC 33 G/DL (32-36); MEAN CORPUSCULAR VOLUME 94 FL (80-99); MEAN PLATELET VOLUME 9.3 FL (7.4-10.4); MONOCYTES # (AUTO) 0.1 X 10^3 (0.0-1.0); MONOCYTES % (AUTO) 3 % (0-12); NEUTROPHILS # (AUTO) 3.1 X 10^3 (1.8-7.8); NEUTROPHILS % (AUTO) 76 % (42-75); PLATELET COUNT 122 10^3/uL (130-400)
[2020-05-12 13:37] LABS: BUN/CREATININE RATIO 14; CALCIUM 9.1 MG/DL (8.5-10.1); CARBON DIOXIDE 26 MMOL/L (21-32); CHLORIDE 104 MMOL/L (98-107); GFR ESTIMATED > 60; GLUCOSE 119 MG/DL (70-105); POTASSIUM 3.8 MMOL/L (3.6-5.0); SODIUM 140 MMOL/L (135-145)
[2020-05-19 10:49] LABS: BASOPHILS # (AUTO) 0.1 10^3/uL (0.0-0.1); BASOPHILS % (AUTO) 2 % (0-10); EOSINOPHILS # (AUTO) 0.1 10^3/uL (0.0-0.3); EOSINOPHILS % (AUTO) 3 % (0-10); HEMATOCRIT 36 % (35-52); HEMOGLOBIN 11.6 G/DL (11.5-16.0); LYMPHOCYTES # (AUTO) 0.6 X 10^3 (1.0-4.0); LYMPHOCYTES % (AUTO) 25 % (12-44); MEAN CORPUSCULAR HEMOGLOBIN 31 PG (25-34); MEAN CORPUSCULAR HGB CONC 33 G/DL (32-36); MEAN CORPUSCULAR VOLUME 96 FL (80-99); MONOCYTES # (AUTO) 0.7 X 10^3 (0.0-1.0); MONOCYTES % (AUTO) 33 % (0-12); NEUTROPHILS # (AUTO) 0.8 X 10^3 (1.8-7.8); NEUTROPHILS % (AUTO) 37 % (42-75); PLATELET COUNT 205 10^3/uL (130-400); WHITE BLOOD COUNT 2.2 10^3/uL (4.3-11.0)
[2020-05-19 11:05] LABS: BUN/CREATININE RATIO 12; CALCIUM 8.9 MG/DL (8.5-10.1); CARBON DIOXIDE 29 MMOL/L (21-32); CHLORIDE 104 MMOL/L (98-107); CREATININE SERUM 0.58 MG/DL (0.60-1.30); GFR ESTIMATED > 60; POTASSIUM 3.4 MMOL/L (3.6-5.0); SODIUM 142 MMOL/L (135-145)
[2020-05-19 11:09] LABS: GLUCOSE 55 MG/DL (70-105)
[2020-05-26 09:10] LABS: BASOPHILS % (AUTO) 1 % (0-10); EOSINOPHILS % (AUTO) 1 % (0-10); HEMATOCRIT 37 % (35-52); HEMOGLOBIN 11.8 G/DL (11.5-16.0); LYMPHOCYTES # (AUTO) 0.5 X 10^3 (1.0-4.0); LYMPHOCYTES % (AUTO) 10 % (12-44); MEAN CORPUSCULAR HEMOGLOBIN 31 PG (25-34); MEAN CORPUSCULAR HGB CONC 32 G/DL (32-36); MEAN CORPUSCULAR VOLUME 96 FL (80-99); MEAN PLATELET VOLUME 8.3 FL (7.4-10.4); MONOCYTES % (AUTO) 5 % (0-12); NEUTROPHILS # (AUTO) 4.1 X 10^3 (1.8-7.8); NEUTROPHILS % (AUTO) 83 % (42-75); PLATELET COUNT 208 10^3/uL (130-400); WHITE BLOOD COUNT 4.9 10^3/uL (4.3-11.0)
[2020-05-26 09:11] LABS: BASOPHILS # (AUTO) 0.1 10^3/uL (0.0-0.1); MONOCYTES # (AUTO) 0.3 X 10^3 (0.0-1.0)
[2020-05-26 09:24] LABS: ALANINE AMINOTRANSFERASE 10 U/L (0-55); ALBUMIN 3.6 GM/DL (3.2-4.5); ALKALINE PHOSPHATASE 113 U/L (40-136); BILIRUBIN,TOTAL 0.3 MG/DL (0.1-1.0); BUN/CREATININE RATIO 15; CALCIUM 8.7 MG/DL (8.5-10.1); CARBON DIOXIDE 27 MMOL/L (21-32); CHLORIDE 107 MMOL/L (98-107); CREATININE SERUM 0.61 MG/DL (0.60-1.30); GFR ESTIMATED > 60; GLUCOSE 92 MG/DL (70-105); MAGNESIUM 1.8 MG/DL (1.6-2.4); POTASSIUM 3.8 MMOL/L (3.6-5.0); SODIUM 141 MMOL/L (135-145); TOTAL PROTEIN 6.7 GM/DL (6.4-8.2)
[2020-06-01 11:16] LABS: BASOPHILS % (AUTO) 1 % (0-10); EOSINOPHILS # (AUTO) 0.1 10^3/uL (0.0-0.3); EOSINOPHILS % (AUTO) 2 % (0-10); HEMATOCRIT 35 % (35-52); HEMOGLOBIN 11.4 G/DL (11.5-16.0); LYMPHOCYTES # (AUTO) 0.6 X 10^3 (1.0-4.0); LYMPHOCYTES % (AUTO) 17 % (12-44); MEAN CORPUSCULAR HEMOGLOBIN 31 PG (25-34); MEAN CORPUSCULAR HGB CONC 33 G/DL (32-36); MEAN CORPUSCULAR VOLUME 95 FL (80-99); MEAN PLATELET VOLUME 8.9 FL (7.4-10.4); MONOCYTES # (AUTO) 0.1 X 10^3 (0.0-1.0); MONOCYTES % (AUTO) 2 % (0-12); NEUTROPHILS # (AUTO) 2.7 X 10^3 (1.8-7.8); NEUTROPHILS % (AUTO) 79 % (42-75); PLATELET COUNT 116 10^3/uL (130-400); WHITE BLOOD COUNT 3.4 10^3/uL (4.3-11.0)
[2020-06-01 11:32] LABS: BUN/CREATININE RATIO 19; CARBON DIOXIDE 29 MMOL/L (21-32); CHLORIDE 103 MMOL/L (98-107); CREATININE SERUM 0.67 MG/DL (0.60-1.30); GFR ESTIMATED > 60; GLUCOSE 121 MG/DL (70-105); POTASSIUM 3.4 MMOL/L (3.6-5.0); SODIUM 138 MMOL/L (135-145)
[~2020-06-09] VITALS: Ht 167.6 cm; Wt 65.8 kg
[2020-06-09 11:54] LABS: BASOPHILS # (AUTO) 0.1 10^3/uL (0.0-0.1); BASOPHILS % (AUTO) 2 % (0-10); EOSINOPHILS # (AUTO) 0.2 10^3/uL (0.0-0.3); EOSINOPHILS % (AUTO) 7 % (0-10); HEMATOCRIT 34 % (35-52); LYMPHOCYTES # (AUTO) 0.8 X 10^3 (1.0-4.0); LYMPHOCYTES % (AUTO) 27 % (12-44); MEAN CORPUSCULAR HEMOGLOBIN 32 PG (25-34); MEAN CORPUSCULAR HGB CONC 33 G/DL (32-36); MEAN CORPUSCULAR VOLUME 97 FL (80-99); MEAN PLATELET VOLUME 8.1 FL (7.4-10.4); MONOCYTES % (AUTO) 33 % (0-12); NEUTROPHILS # (AUTO) 0.9 X 10^3 (1.8-7.8); NEUTROPHILS % (AUTO) 32 % (42-75); PLATELET COUNT 217 10^3/uL (130-400); WHITE BLOOD COUNT 2.9 10^3/uL (4.3-11.0)
[~2020-06-09 11:54] MED LIST changes: +ALTEPLASE 2 MG (CATHFLO) CANCER CENTER IV ONE; +CARBOPLATIN IV SCH; +D5W IV SCH; +FAMOTIDINE 20MG/2ML IV (CANCER CTR) IV SCH; +FOSAPREPITANT (CANCER CENTER) 150 MG in NS (IVPB) CANCER CENTER ONLY 150 ML IV SCH; -MONT10TA24 PO; +MONT10TA26 PO; +NS IV 1000 ML (CANCER CTR) IV SCH; +PEMBROLIZUMAB 200 MG in NS (IVPB) CANCER CENTER 50 ML IV SCH; +diphenhydrAMINE 25 MG TAB (BENADRYL) CANCER CENTER PO ONE; +diphenhydrAMINE 25 MG TAB (BENADRYL) CANCER CENTER PO SCH; +diphenhydrAMINE 50 MG/ML INJ (CANCER CENTER) IV PRN; +diphenhydrAMINE 50 MG/ML INJ (CANCER CENTER) ONE
[2020-06-09 12:09] LABS: BUN/CREATININE RATIO 10; CALCIUM 9.1 MG/DL (8.5-10.1); CARBON DIOXIDE 29 MMOL/L (21-32); CHLORIDE 104 MMOL/L (98-107); GFR ESTIMATED > 60; GLUCOSE 76 MG/DL (70-105); POTASSIUM 3.3 MMOL/L (3.6-5.0); SODIUM 141 MMOL/L (135-145)
[2020-06-16 08:47] LABS: BASOPHILS % (AUTO) 1 % (0-10); EOSINOPHILS % (AUTO) 0 % (0-10); HEMATOCRIT 36 % (35-52); HEMOGLOBIN 11.8 G/DL (11.5-16.0); LYMPHOCYTES # (AUTO) 0.5 X 10^3 (1.0-4.0); LYMPHOCYTES % (AUTO) 17 % (12-44); MEAN CORPUSCULAR HEMOGLOBIN 32 PG (25-34); MEAN CORPUSCULAR HGB CONC 33 G/DL (32-36); MEAN CORPUSCULAR VOLUME 96 FL (80-99); MEAN PLATELET VOLUME 8.1 FL (7.4-10.4); MONOCYTES # (AUTO) 0.2 X 10^3 (0.0-1.0); MONOCYTES % (AUTO) 7 % (0-12); NEUTROPHILS # (AUTO) 2.3 X 10^3 (1.8-7.8); NEUTROPHILS % (AUTO) 75 % (42-75); PLATELET COUNT 232 10^3/uL (130-400); WHITE BLOOD COUNT 3.1 10^3/uL (4.3-11.0)
[2020-06-16 09:04] LABS: ALANINE AMINOTRANSFERASE 6 U/L (0-55); ALBUMIN 3.6 GM/DL (3.2-4.5); ALKALINE PHOSPHATASE 98 U/L (40-136); BILIRUBIN,TOTAL 0.2 MG/DL (0.1-1.0); BUN/CREATININE RATIO 10; CARBON DIOXIDE 28 MMOL/L (21-32); CHLORIDE 104 MMOL/L (98-107); CREATININE SERUM 0.68 MG/DL (0.60-1.30); GFR ESTIMATED > 60; GLUCOSE 205 MG/DL (70-105); MAGNESIUM 1.8 MG/DL (1.6-2.4); POTASSIUM 3.6 MMOL/L (3.6-5.0); SODIUM 141 MMOL/L (135-145)
== END 2020-06-16 09:28 | disposition home or self-care (01) ==
LOC: ONC 11:54
PROVIDERS: ATTEND Internal Medicine Hematology & Oncology
DX: Z51.11 Encounter for antineoplastic chemotherapy (principal); C34.90 Malignant neoplasm of unspecified part of unspecified bronchus or lung; J44.9 Chronic obstructive pulmonary disease, unspecified
CPT/HCPCS: 80053; 85025; G0463; 36591; 36593; 80048; 83735; 96367; 96375; 96413; 96415; 96417; 99214

== ENCOUNTER → 2020-07-01 | Outpatient (CLI) | payer MEDICARE, OTHER ==
[~2020-07-01] MED LIST changes: -ALTEPLASE 2 MG (CATHFLO) CANCER CENTER IV ONE; -CARBOPLATIN IV SCH; -D5W IV SCH; -FAMOTIDINE 20MG/2ML IV (CANCER CTR) IV SCH; -FOSAPREPITANT (CANCER CENTER) 150 MG in NS (IVPB) CANCER CENTER ONLY 150 ML IV SCH; +HOLD METFORMIN - RECEIVED CONTRAST 20 ML VIAL IV SCH; +IOHEXOL 350 MG/ML 100 ML (OMNIPAQUE 350) VIAL IV ONE; +NS 100 ML (IVPB) BAG IV ONE; -NS IV 1000 ML (CANCER CTR) IV SCH; -PEMBROLIZUMAB 200 MG in NS (IVPB) CANCER CENTER 50 ML IV SCH; -diphenhydrAMINE 25 MG TAB (BENADRYL) CANCER CENTER PO ONE; -diphenhydrAMINE 25 MG TAB (BENADRYL) CANCER CENTER PO SCH; -diphenhydrAMINE 50 MG/ML INJ (CANCER CENTER) IV PRN; -diphenhydrAMINE 50 MG/ML INJ (CANCER CENTER) ONE
--- NOTE | 2020-07-01 11:05 | Diagnostic Imaging Report ---
PROCEDURE: CT chest and abdomen with contrast. TECHNIQUE: Multiple contiguous axial images were obtained through the chest and abdomen after the administration of intravenous contrast. Auto Exposure Controls were utilized during the CT exam to meet ALARA standards for radiation dose reduction. INDICATION: Lung cancer. Mycobacterium avium infection The previous CT chest exam of 08/26/2018 noted a 1.8 x 2.7 cm cavitary lesion along the posterior aspect of the right upper lobe as well as a 1.5 x 2.0 cm subpleural density along the posterior aspect of the superior segment of the right lower lobe. Those lesions appear to have coalesced into one cavitary mass. This mass measures 2.4 x 3.7 cm. The prior exam also noted a 1.2 x 2.4 cm alveolar/interstitial density in the left upper lobe. That finding is not clearly evident on this exam and may represent a region of pneumonia/atelectasis which has subsequently resolved. However in the interval since the previous exam a diffuse alveolar/interstitial infiltrate has developed throughout the left upper lobe and to a lesser extent the medial aspect of the right upper lobe. This does suggest an inflammatory/infectious process. There is also a 1.7 x 1.5 cm new area of cavitation in the left upper lobe. I suspect these findings are related to the patient's diagnosis of mycobacterium avium. A new parenchymal density in the right perihilar region has also developed since the prior exam. This measures 1.0 x 1.4 cm. There is also a 1.1 x 1.5 cm parenchymal density in the right lower lobe which was not present on the prior exam. Whether these new areas of abnormal density are related to an inflammatory/infectious process or whether these are neoplastic in nature is unclear. The heart is stable in size. Coronary calcifications are again noted. The aorta is not abnormally dilated and there is no sign of a dissection. The pulmonary arteries are not well opacified and consequently difficult to assess for a pulmonary embolus. There is no definite embolus formation identified however. There is no mediastinal or hilar adenopathy. There is a 7 mm area of low density in the right lobe of the thyroid. This was not clearly evident on the noncontrast study performed previously. This is most likely a benign process but ultrasound would be recommended to better characterize this finding when the patient's condition permits. The left lobe of the thyroid appears to be surgically absent. The images through the upper abdomen again show the 1.5 cm cyst involving the liver near the falciform ligament that was seen on the prior PET/CT exam of 04/01/2018. There are a few subcentimeter cysts in the right lobe of the liver as well. The spleen, pancreas, adrenals, kidneys, aorta and inferior vena cava and portal vein show no sign of an acute abnormality. The stomach is not well distended and difficult to assess. The bone windows are unremarkable for a fracture or for a destructive lesion. IMPRESSION: 1. The appearance of the chest has worsened considerably since the prior exam as diffuse alveolar/interstitial infiltrates have developed throughout the left upper lung and to a much lesser extent the right upper lobe. There is also a new area of cavitation left upper lung and these findings are most likely due to the patient's diagnosis of mycobacterium avium. 2. The new parenchymal lesions in the right perihilar region in the right lung base may also be secondary to an inflammatory/infectious process. The possibility that these are neoplastic in nature cannot be entirely excluded. There is no acute cardiopulmonary abnormality noted otherwise. The pulmonary arteries were not well opacified however and consequently difficult to assess for an embolus. 3. There is no acute abnormality of the abdomen and there is no sign of neoplastic disease. 4. Ultrasound would be recommended for further evaluation of the low density nodule in the right lobe of the thyroid. 5. These results were discussed with . Dictated by: Dictated on workstation # [id number]
== END ==
LOC: RAD 09:45
PROVIDERS: ATTEND Internal Medicine Hematology & Oncology
DX: C34.90 Malignant neoplasm of unspecified part of unspecified bronchus or lung (principal); A31.0 Pulmonary mycobacterial infection; J98.4 Other disorders of lung
CPT/HCPCS: 71260; 74160

== ENCOUNTER 2020-08-26 09:52 | Outpatient (RCR) | payer MEDICARE, OTHER ==
[2020-06-23 12:05] LABS: BASOPHILS % (AUTO) 0 % (0-10); EOSINOPHILS # (AUTO) 0.2 10^3/uL (0.0-0.3); EOSINOPHILS % (AUTO) 3 % (0-10); HEMATOCRIT 34 % (35-52); HEMOGLOBIN 11.1 G/DL (11.5-16.0); LYMPHOCYTES # (AUTO) 0.6 X 10^3 (1.0-4.0); LYMPHOCYTES % (AUTO) 13 % (12-44); MEAN CORPUSCULAR HEMOGLOBIN 32 PG (25-34); MEAN CORPUSCULAR HGB CONC 33 G/DL (32-36); MEAN CORPUSCULAR VOLUME 96 FL (80-99); MEAN PLATELET VOLUME 9.3 FL (7.4-10.4); MONOCYTES # (AUTO) 0.3 X 10^3 (0.0-1.0); MONOCYTES % (AUTO) 6 % (0-12); NEUTROPHILS # (AUTO) 3.8 X 10^3 (1.8-7.8); NEUTROPHILS % (AUTO) 77 % (42-75); PLATELET COUNT 119 10^3/uL (130-400); WHITE BLOOD COUNT 4.9 10^3/uL (4.3-11.0)
[2020-06-23 12:23] LABS: BUN/CREATININE RATIO 15; CALCIUM 8.7 MG/DL (8.5-10.1); CARBON DIOXIDE 27 MMOL/L (21-32); CHLORIDE 100 MMOL/L (98-107); CREATININE SERUM 0.74 MG/DL (0.60-1.30); GFR ESTIMATED > 60; GLUCOSE 147 MG/DL (70-105); POTASSIUM 3.6 MMOL/L (3.6-5.0); SODIUM 137 MMOL/L (135-145)
[2020-06-30 09:49] LABS: BASOPHILS # (AUTO) 0.1 10^3/uL (0.0-0.1); BASOPHILS % (AUTO) 2 % (0-10); EOSINOPHILS # (AUTO) 0.3 10^3/uL (0.0-0.3); EOSINOPHILS % (AUTO) 13 % (0-10); HEMATOCRIT 32 % (35-52); HEMOGLOBIN 10.3 g/dL (11.5-16.0); LYMPHOCYTES # (AUTO) 0.5 10^3/uL (1.0-4.0); LYMPHOCYTES % (AUTO) 21 % (12-44); MEAN CORPUSCULAR HEMOGLOBIN 32 pg (25-34); MEAN CORPUSCULAR HGB CONC 33 g/dL (32-36); MEAN CORPUSCULAR VOLUME 98 fL (80-99); MEAN PLATELET VOLUME 8.4 fL (9.0-12.2); MONOCYTES # (AUTO) 0.7 10^3/uL (0.0-1.0); MONOCYTES % (AUTO) 28 % (0-12); NEUTROPHILS # (AUTO) 0.9 10^3/uL (1.8-7.8); NEUTROPHILS % (AUTO) 37 % (42-75); PLATELET COUNT 191 10^3/uL (130-400); WHITE BLOOD COUNT 2.4 10^3/uL (4.3-11.0)
[2020-06-30 10:02] LABS: BUN/CREATININE RATIO 9; CALCIUM 8.5 MG/DL (8.5-10.1); CARBON DIOXIDE 29 MMOL/L (21-32); CHLORIDE 101 MMOL/L (98-107); CREATININE SERUM 0.54 MG/DL (0.60-1.30); GFR ESTIMATED > 60; GLUCOSE 81 MG/DL (70-105); SODIUM 141 MMOL/L (135-145)
[2020-07-07 09:22] LABS: BASOPHILS # (AUTO) 0.1 10^3/uL (0.0-0.1); BASOPHILS % (AUTO) 2 % (0-10); EOSINOPHILS # (AUTO) 0.2 10^3/uL (0.0-0.3); EOSINOPHILS % (AUTO) 6 % (0-10); HEMATOCRIT 33 % (35-52); HEMOGLOBIN 10.8 g/dL (11.5-16.0); LYMPHOCYTES # (AUTO) 0.7 10^3/uL (1.0-4.0); LYMPHOCYTES % (AUTO) 19 % (12-44); MEAN CORPUSCULAR HEMOGLOBIN 32 pg (25-34); MEAN CORPUSCULAR HGB CONC 33 g/dL (32-36); MEAN CORPUSCULAR VOLUME 99 fL (80-99); MEAN PLATELET VOLUME 8.2 fL (9.0-12.2); MONOCYTES # (AUTO) 0.5 10^3/uL (0.0-1.0); MONOCYTES % (AUTO) 14 % (0-12); NEUTROPHILS # (AUTO) 2.2 10^3/uL (1.8-7.8); NEUTROPHILS % (AUTO) 58 % (42-75); PLATELET COUNT 190 10^3/uL (130-400); WHITE BLOOD COUNT 3.8 10^3/uL (4.3-11.0)
[2020-07-07 09:39] LABS: ALANINE AMINOTRANSFERASE 9 U/L (0-55); ALBUMIN 3.2 GM/DL (3.2-4.5); ALKALINE PHOSPHATASE 91 U/L (40-136); BILIRUBIN,TOTAL 0.2 MG/DL (0.1-1.0); BUN/CREATININE RATIO 10; CALCIUM 8.6 MG/DL (8.5-10.1); CARBON DIOXIDE 24 MMOL/L (21-32); CHLORIDE 105 MMOL/L (98-107); CREATININE SERUM 0.71 MG/DL (0.60-1.30); GFR ESTIMATED > 60; GLUCOSE 164 MG/DL (70-105); MAGNESIUM 1.5 MG/DL (1.6-2.4); POTASSIUM 3.3 MMOL/L (3.6-5.0); SODIUM 141 MMOL/L (135-145); TOTAL PROTEIN 6.3 GM/DL (6.4-8.2)
[2020-07-28 09:50] LABS: BASOPHILS # (AUTO) 0.1 10^3/uL (0.0-0.1); BASOPHILS % (AUTO) 1 % (0-10); EOSINOPHILS # (AUTO) 0.5 10^3/uL (0.0-0.3); EOSINOPHILS % (AUTO) 10 % (0-10); HEMATOCRIT 36 % (35-52); HEMOGLOBIN 11.8 g/dL (11.5-16.0); LYMPHOCYTES # (AUTO) 0.8 10^3/uL (1.0-4.0); LYMPHOCYTES % (AUTO) 16 % (12-44); MEAN CORPUSCULAR HEMOGLOBIN 33 pg (25-34); MEAN CORPUSCULAR HGB CONC 33 g/dL (32-36); MEAN CORPUSCULAR VOLUME 101 fL (80-99); MEAN PLATELET VOLUME 8.9 fL (9.0-12.2); MONOCYTES # (AUTO) 0.7 10^3/uL (0.0-1.0); MONOCYTES % (AUTO) 14 % (0-12); NEUTROPHILS # (AUTO) 2.9 10^3/uL (1.8-7.8); NEUTROPHILS % (AUTO) 59 % (42-75); PLATELET COUNT 159 10^3/uL (130-400)
[2020-07-28 10:08] LABS: ALANINE AMINOTRANSFERASE 8 U/L (0-55); ALBUMIN 3.3 GM/DL (3.2-4.5); ALKALINE PHOSPHATASE 98 U/L (40-136); BILIRUBIN,TOTAL 0.5 MG/DL (0.1-1.0); BUN/CREATININE RATIO 12; CALCIUM 8.4 MG/DL (8.5-10.1); CARBON DIOXIDE 27 MMOL/L (21-32); CHLORIDE 103 MMOL/L (98-107); CREATININE SERUM 0.58 MG/DL (0.60-1.30); GFR ESTIMATED > 60; GLUCOSE 78 MG/DL (70-105); POTASSIUM 3.5 MMOL/L (3.6-5.0); SODIUM 140 MMOL/L (135-145); TOTAL PROTEIN 6.2 GM/DL (6.4-8.2)
[~2020-08-26 09:52] MED LIST changes: +CARBOPLATIN IV SCH; +D5W IV SCH; +FAMOTIDINE 20MG/2ML IV (CANCER CTR) IV SCH; +FOSAPREPITANT (CANCER CENTER) 150 MG in NS (IVPB) CANCER CENTER ONLY 150 ML IV SCH; -HOLD METFORMIN - RECEIVED CONTRAST 20 ML VIAL IV SCH; -IOHEXOL 350 MG/ML 100 ML (OMNIPAQUE 350) VIAL IV ONE; -MONT10TA26 PO; +MONT10TA97 PO; -NS 100 ML (IVPB) BAG IV ONE; +NS IV 1000 ML (CANCER CTR) IV SCH; +PEMBROLIZUMAB 200 MG in NS (IVPB) CANCER CENTER 50 ML IV SCH; +diphenhydrAMINE 25 MG TAB (BENADRYL) CANCER CENTER PO SCH
[2020-08-26 10:36] LABS: BASOPHILS % (AUTO) 1 % (0-10); EOSINOPHILS # (AUTO) 0.4 10^3/uL (0.0-0.3); EOSINOPHILS % (AUTO) 8 % (0-10); HEMATOCRIT 38 % (35-52); HEMOGLOBIN 12.2 g/dL (11.5-16.0); LYMPHOCYTES # (AUTO) 0.9 10^3/uL (1.0-4.0); LYMPHOCYTES % (AUTO) 18 % (12-44); MEAN CORPUSCULAR HEMOGLOBIN 33 pg (25-34); MEAN CORPUSCULAR HGB CONC 33 g/dL (32-36); MEAN CORPUSCULAR VOLUME 102 fL (80-99); MEAN PLATELET VOLUME 8.9 fL (9.0-12.2); MONOCYTES # (AUTO) 0.6 10^3/uL (0.0-1.0); MONOCYTES % (AUTO) 12 % (0-12); NEUTROPHILS % (AUTO) 61 % (42-75); PLATELET COUNT 156 10^3/uL (130-400); WHITE BLOOD COUNT 4.8 10^3/uL (4.3-11.0)
[2020-08-26 10:59] LABS: ALANINE AMINOTRANSFERASE 11 U/L (0-55); ALBUMIN 3.7 GM/DL (3.2-4.5); ALKALINE PHOSPHATASE 100 U/L (40-136); BILIRUBIN,TOTAL 0.5 MG/DL (0.1-1.0); BUN/CREATININE RATIO 17; CALCIUM 9.2 MG/DL (8.5-10.1); CARBON DIOXIDE 26 MMOL/L (21-32); CHLORIDE 104 MMOL/L (98-107); CREATININE SERUM 0.59 MG/DL (0.60-1.30); GFR ESTIMATED > 60; GLUCOSE 75 MG/DL (70-105); POTASSIUM 3.7 MMOL/L (3.6-5.0); SODIUM 143 MMOL/L (135-145); TOTAL PROTEIN 6.5 GM/DL (6.4-8.2)
== END 2020-09-14 | disposition home or self-care (01) ==
LOC: ONC 09:52
PROVIDERS: ATTEND Internal Medicine Hematology & Oncology
DX: Z51.11 Encounter for antineoplastic chemotherapy (principal); C34.82 Malignant neoplasm of overlapping sites of left bronchus and lung; J18.9 Pneumonia, unspecified organism; M19.90 Unspecified osteoarthritis, unspecified site; J44.9 Chronic obstructive pulmonary disease, unspecified; Z90.89 Acquired absence of other organs; Z98.890 Other specified postprocedural states; Z95.828 Presence of other vascular implants and grafts
CPT/HCPCS: 96367; 96375; 96413; 96415; 96417; G0463; 36591; 80048; 80053; 83735; 84443; 85025; 99213

== ENCOUNTER → 2020-10-28 | Outpatient (CLI) | payer MEDICARE, OTHER ==
[~2020-10-28] MED LIST changes: -CARBOPLATIN IV SCH; -D5W IV SCH; -FAMOTIDINE 20MG/2ML IV (CANCER CTR) IV SCH; -FOSAPREPITANT (CANCER CENTER) 150 MG in NS (IVPB) CANCER CENTER ONLY 150 ML IV SCH; -NS IV 1000 ML (CANCER CTR) IV SCH; -PEMBROLIZUMAB 200 MG in NS (IVPB) CANCER CENTER 50 ML IV SCH; -diphenhydrAMINE 25 MG TAB (BENADRYL) CANCER CENTER PO SCH
--- NOTE | 2020-10-28 13:56 | Diagnostic Imaging Report ---
EXAMINATION: CT Chest without contrast. TECHNIQUE: Multiple contiguous axial images were obtained through the chest without the use of intravenous contrast. All CT scans use one or more of the following dose optimizing techniques: automated exposure control, MA and/or KvP adjustment based on a patient size and exam type, or iterative reconstruction. HISTORY: Pulmonary mycobacterium avium complex infection, follow-up. COMPARISON: CT chest 07/01/2020. FINDINGS: Thyroid: The thyroid is normal. Mediastinum: Heart size is normal without significant pericardial effusion. Calcifications of the aorta and coronary vessels. Thoracic aorta is normal in caliber. Multiple calcified left hilar lymph nodes. No pathologically enlarged lymphadenopathy. Lungs and airways: Redemonstrated severe emphysematous changes of the lungs. There is decreased consolidation within the left upper lobe compared to 07/01/2020. Within the left upper lobe there is a 1.0 cm subpleural pulmonary nodule which was not seen on the prior exam. Slightly decreased size of the cavitary nodule within the left upper lobe measuring 3.3 x 1.9 cm (series 3 image 40). Stable size and appearance of a 1.3 x 1.0 cm nodule within the left lower lobe (series 3 image 56). There continues to be bilateral upper lobe and right middle and lower lobe scarring. No new consolidation, pleural effusion, or pneumothorax. The airways are normal. Upper abdomen: A hepatic cyst is unchanged. The subphrenic structures are otherwise unremarkable. Musculoskeletal: Degenerative changes of the spine without suspicious osseous lesion or compression fracture. IMPRESSION: 1. Decreased consolidation throughout both lungs. 2. Stable to decreased size of numerous bilateral pulmonary nodules with the largest cavitary nodule within the right upper lobe measuring up to 3.3 cm. Multiple left pulmonary nodules measuring up to 1.0 cm are new from 07/01/2020. These may represent true new nodules or could be secondary to obscurement on the prior CT. Recommend short-term three-month CT follow-up. 3. Stable severe emphysema and scarring of both lungs. Dictated by: Dictated on workstation # [id number]
== END ==
LOC: RAD 12:49
PROVIDERS: ATTEND Specialist
DX: A31.0 Pulmonary mycobacterial infection (principal); J43.8 Other emphysema; R91.8 Other nonspecific abnormal finding of lung field
CPT/HCPCS: 71250

== ENCOUNTER 2021-02-02 13:57 | Outpatient (RCR) | payer MEDICARE, OTHER ==
[2020-12-06 11:18] LABS: BASOPHILS % (AUTO) 1 % (0-10); EOSINOPHILS # (AUTO) 0.2 10^3/uL (0.0-0.3); EOSINOPHILS % (AUTO) 5 % (0-10); HEMATOCRIT 38 % (35-52); HEMOGLOBIN 12.6 g/dL (11.5-16.0); LYMPHOCYTES # (AUTO) 0.9 10^3/uL (1.0-4.0); LYMPHOCYTES % (AUTO) 19 % (12-44); MEAN CORPUSCULAR HEMOGLOBIN 33 pg (25-34); MEAN CORPUSCULAR HGB CONC 34 g/dL (32-36); MEAN CORPUSCULAR VOLUME 100 fL (80-99); MEAN PLATELET VOLUME 9.1 fL (9.0-12.2); MONOCYTES # (AUTO) 0.5 10^3/uL (0.0-1.0); MONOCYTES % (AUTO) 12 % (0-12); NEUTROPHILS # (AUTO) 2.9 10^3/uL (1.8-7.8); NEUTROPHILS % (AUTO) 64 % (42-75); PLATELET COUNT 151 10^3/uL (130-400); WHITE BLOOD COUNT 4.5 10^3/uL (4.3-11.0)
[2020-12-06 11:39] LABS: ALANINE AMINOTRANSFERASE 14 U/L (0-55); ALBUMIN 3.7 GM/DL (3.2-4.5); ALKALINE PHOSPHATASE 91 U/L (40-136); BILIRUBIN,TOTAL 0.7 MG/DL (0.1-1.0); BUN/CREATININE RATIO 21; CALCIUM 9.1 MG/DL (8.5-10.1); CARBON DIOXIDE 27 MMOL/L (21-32); CHLORIDE 106 MMOL/L (98-107); CREATININE SERUM 0.72 MG/DL (0.60-1.30); GFR ESTIMATED > 60; GLUCOSE 86 MG/DL (70-105); POTASSIUM 3.8 MMOL/L (3.6-5.0); SODIUM 141 MMOL/L (135-145); TOTAL PROTEIN 6.4 GM/DL (6.4-8.2)
[2021-01-12 13:01] LABS: BASOPHILS % (AUTO) 1 % (0-10); EOSINOPHILS # (AUTO) 0.3 10^3/uL (0.0-0.3); EOSINOPHILS % (AUTO) 5 % (0-10); HEMATOCRIT 39 % (35-52); HEMOGLOBIN 13.2 g/dL (11.5-16.0); LYMPHOCYTES # (AUTO) 0.9 10^3/uL (1.0-4.0); LYMPHOCYTES % (AUTO) 16 % (12-44); MEAN CORPUSCULAR HEMOGLOBIN 34 pg (25-34); MEAN CORPUSCULAR HGB CONC 34 g/dL (32-36); MEAN CORPUSCULAR VOLUME 100 fL (80-99); MEAN PLATELET VOLUME 9.5 fL (9.0-12.2); MONOCYTES # (AUTO) 0.6 10^3/uL (0.0-1.0); MONOCYTES % (AUTO) 11 % (0-12); NEUTROPHILS # (AUTO) 3.9 10^3/uL (1.8-7.8); NEUTROPHILS % (AUTO) 68 % (42-75); PLATELET COUNT 141 10^3/uL (130-400); WHITE BLOOD COUNT 5.7 10^3/uL (4.3-11.0)
[2021-01-12 13:23] LABS: ALANINE AMINOTRANSFERASE 14 U/L (0-55); ALBUMIN 3.7 GM/DL (3.2-4.5); ALKALINE PHOSPHATASE 95 U/L (40-136); BILIRUBIN,TOTAL 0.7 MG/DL (0.1-1.0); BUN/CREATININE RATIO 19; CALCIUM 8.8 MG/DL (8.5-10.1); CARBON DIOXIDE 27 MMOL/L (21-32); CHLORIDE 107 MMOL/L (98-107); CREATININE SERUM 0.73 MG/DL (0.60-1.30); GFR ESTIMATED > 60; GLUCOSE 133 MG/DL (70-105); POTASSIUM 3.7 MMOL/L (3.6-5.0); SODIUM 145 MMOL/L (135-145); TOTAL PROTEIN 6.7 GM/DL (6.4-8.2)
[~2021-02-02 13:57] MED LIST changes: +MONT10TA32 PO; -MONT10TA97 PO; +NS IV 500 ML (CANCER CENTER) 500 ML IV SCH; +PEMBROLIZUMAB 200 MG in NS (IVPB) CANCER CENTER 50 ML IV SCH
[2021-02-02 14:25] LABS: BASOPHILS # (AUTO) 0.1 10^3/uL (0.0-0.1); BASOPHILS % (AUTO) 1 % (0-10); EOSINOPHILS # (AUTO) 0.4 10^3/uL (0.0-0.3); EOSINOPHILS % (AUTO) 10 % (0-10); HEMATOCRIT 39 % (35-52); HEMOGLOBIN 12.9 g/dL (11.5-16.0); LYMPHOCYTES # (AUTO) 0.9 10^3/uL (1.0-4.0); LYMPHOCYTES % (AUTO) 21 % (12-44); MEAN CORPUSCULAR HEMOGLOBIN 34 pg (25-34); MEAN CORPUSCULAR HGB CONC 33 g/dL (32-36); MEAN CORPUSCULAR VOLUME 102 fL (80-99); MEAN PLATELET VOLUME 8.7 fL (9.0-12.2); MONOCYTES # (AUTO) 0.5 10^3/uL (0.0-1.0); MONOCYTES % (AUTO) 12 % (0-12); NEUTROPHILS # (AUTO) 2.4 10^3/uL (1.8-7.8); NEUTROPHILS % (AUTO) 56 % (42-75); PLATELET COUNT 141 10^3/uL (130-400); WHITE BLOOD COUNT 4.4 10^3/uL (4.3-11.0)
[2021-02-02 14:49] LABS: ALANINE AMINOTRANSFERASE 11 U/L (0-55); ALBUMIN 3.6 GM/DL (3.2-4.5); ALKALINE PHOSPHATASE 113 U/L (40-136); BILIRUBIN,TOTAL 0.5 MG/DL (0.1-1.0); BUN/CREATININE RATIO 12; CALCIUM 8.7 MG/DL (8.5-10.1); CARBON DIOXIDE 24 MMOL/L (21-32); CHLORIDE 105 MMOL/L (98-107); CREATININE SERUM 0.73 MG/DL (0.60-1.30); GFR ESTIMATED > 60; GLUCOSE 168 MG/DL (70-105); POTASSIUM 3.3 MMOL/L (3.6-5.0); SODIUM 141 MMOL/L (135-145); TOTAL PROTEIN 6.5 GM/DL (6.4-8.2)
== END 2021-03-06 | disposition home or self-care (01) ==
LOC: ONC 13:57
PROVIDERS: ATTEND Internal Medicine Hematology & Oncology
DX: Z51.11 Encounter for antineoplastic chemotherapy (principal); C34.91 Malignant neoplasm of unspecified part of right bronchus or lung; J18.9 Pneumonia, unspecified organism; M19.90 Unspecified osteoarthritis, unspecified site; J44.9 Chronic obstructive pulmonary disease, unspecified; F17.211 Nicotine dependence, cigarettes, in remission; D64.81 Anemia due to antineoplastic chemotherapy; D70.1 Agranulocytosis secondary to cancer chemotherapy; Z90.89 Acquired absence of other organs; Z98.890 Other specified postprocedural states; Z95.828 Presence of other vascular implants and grafts
CPT/HCPCS: 80053; 85025; G0463; 36591; 84443; 96413

== ENCOUNTER → 2021-03-16 | Outpatient (CLI) | payer MEDICARE, OTHER ==
[~2021-03-16] MED LIST changes: +CATHETER FLUSH 10 ML SYR IV PRN; +HOLD METFORMIN - RECEIVED CONTRAST 20 ML VIAL IV SCH; +IOHEXOL 350 MG/ML 100 ML (OMNIPAQUE 350) VIAL IV ONE; +NS 100 ML (IVPB) BAG IV ONE; -NS IV 500 ML (CANCER CENTER) 500 ML IV SCH; -PEMBROLIZUMAB 200 MG in NS (IVPB) CANCER CENTER 50 ML IV SCH
--- NOTE | 2021-03-16 12:59 | Diagnostic Imaging Report ---
PROCEDURE: CT chest with contrast only. TECHNIQUE: Multiple contiguous axial images were obtained through the chest after administration of intravenous contrast. Auto Exposure Controls were utilized during the CT exam to meet ALARA standards for radiation dose reduction. INDICATION: Malignant neoplasm of bronchus The previous CT chest exam of 10/28/2020 noted stable to decreased size of the numerous pulmonary nodules seen on the previous exam of 07/01/2020. There also appear to be multiple new left pulmonary nodules. On this exam the large cavitary nodules in the right lower lobe measuring 19 x 33 mm is again evident and now measures 18 x 34 mm. The spiculated mass in the right perihilar region measuring 13 x 16 mm previously is now estimated to be 13 x 15 mm. The radiodensity in the right lower lobe measuring 10 x 13 previously is now estimated to be 10 x 12 mm. The small 6 mm nodule along the periphery of the right midlung seen previously is again evident and no different (image 59 series 3). However in the interval since the prior exam a new 7 x 8 mm nodule has developed in the right lower lobe (image 116 of 3. The pulmonary nodules involving the left lung seen previously do not appear to have changed adversely. The 3 mm nodule left upper lung seems stable (image 64 of series 3 as does the 11 mm nodule in the left apex (image 27 series 3). However the nodular area of increased density along the minor fissure on the left seen previously is not well-visualized. On the prior exam this area measured 6 x 11 mm. On today's study there is virtually no abnormal density in this area. The severe emphysematous changes involving both lung seen previously are again visualized and stable. There is no acute cardiopulmonary abnormality noted. The heart size is stable when compared to the prior exam. Coronary calcifications are again noted. The aorta is not abnormally dilated and there is no sign of dissection. There is no defect within the pulmonary arteries to indicate a pulmonary embolus. There is no mediastinal or hilar adenopathy. The thyroid gland was partially obscured by streak artifact. The vague area of low density in the right lobe seen previously does not appear to have changed significantly. The sections through the upper abdomen failed to show any sign of acute abnormality. The well-circumscribed 18 mm low density lesion along the anterior aspect of left lobe liver seen previously is again evident and no different. The bone windows show no evidence for a fracture or for a destructive lesion. IMPRESSION: 1. The multiple pulmonary nodules seen previous are again evident and do not appear to have changed significantly. However a new small 7-8 mm nodule has developed in the right lung base. This should be considered neoplastic until proven otherwise. 2. There are severe chronic pulmonary changes evident but there is no sign of an acute abnormality. 3. There is coronary artery disease. Dictated by: Dictated on workstation # [id number]
== END ==
LOC: RAD 10:26
PROVIDERS: ATTEND Internal Medicine Hematology & Oncology
DX: C34.90 Malignant neoplasm of unspecified part of unspecified bronchus or lung (principal); J44.9 Chronic obstructive pulmonary disease, unspecified; I25.10 Atherosclerotic heart disease of native coronary artery without angina pectoris; R91.8 Other nonspecific abnormal finding of lung field
CPT/HCPCS: 71260

== ENCOUNTER 2021-04-03 08:32 | Outpatient (RCR) | payer MEDICARE, OTHER ==
[2021-03-09 14:22] LABS: BASOPHILS % (AUTO) 1 % (0-10); EOSINOPHILS # (AUTO) 0.3 10^3/uL (0.0-0.3); EOSINOPHILS % (AUTO) 6 % (0-10); HEMATOCRIT 38 % (35-52); HEMOGLOBIN 12.8 g/dL (11.5-16.0); LYMPHOCYTES # (AUTO) 1.1 10^3/uL (1.0-4.0); LYMPHOCYTES % (AUTO) 21 % (12-44); MEAN CORPUSCULAR HEMOGLOBIN 33 pg (25-34); MEAN CORPUSCULAR HGB CONC 34 g/dL (32-36); MEAN CORPUSCULAR VOLUME 99 fL (80-99); MONOCYTES # (AUTO) 0.6 10^3/uL (0.0-1.0); MONOCYTES % (AUTO) 12 % (0-12); NEUTROPHILS # (AUTO) 3.1 10^3/uL (1.8-7.8); NEUTROPHILS % (AUTO) 60 % (42-75); PLATELET COUNT 162 10^3/uL (130-400); WHITE BLOOD COUNT 5.2 10^3/uL (4.3-11.0)
[2021-03-09 14:47] LABS: ALANINE AMINOTRANSFERASE 15 U/L (0-55); ALBUMIN 3.5 GM/DL (3.2-4.5); ALKALINE PHOSPHATASE 105 U/L (40-136); BILIRUBIN,TOTAL 0.6 MG/DL (0.1-1.0); BUN/CREATININE RATIO 17; CALCIUM 8.9 MG/DL (8.5-10.1); CARBON DIOXIDE 28 MMOL/L (21-32); CHLORIDE 104 MMOL/L (98-107); CREATININE SERUM 0.71 MG/DL (0.60-1.30); GFR ESTIMATED > 60; GLUCOSE 69 MG/DL (70-105); POTASSIUM 3.9 MMOL/L (3.6-5.0); SODIUM 140 MMOL/L (135-145); TOTAL PROTEIN 6.3 GM/DL (6.4-8.2)
[~2021-04-03 08:32] MED LIST changes: -CATHETER FLUSH 10 ML SYR IV PRN; -HOLD METFORMIN - RECEIVED CONTRAST 20 ML VIAL IV SCH; -IOHEXOL 350 MG/ML 100 ML (OMNIPAQUE 350) VIAL IV ONE; -NS 100 ML (IVPB) BAG IV ONE; +NS IV 500 ML (CANCER CENTER) 500 ML IV SCH; +PEMBROLIZUMAB 200 MG in NS (IVPB) CANCER CENTER 50 ML IV SCH
== END 2021-06-07 | disposition home or self-care (01) ==
LOC: ONC 08:32
PROVIDERS: ATTEND Internal Medicine Hematology & Oncology
DX: Z45.2 Encounter for adjustment and management of vascular access device (principal); C34.91 Malignant neoplasm of unspecified part of right bronchus or lung; J18.9 Pneumonia, unspecified organism; M19.90 Unspecified osteoarthritis, unspecified site; J44.9 Chronic obstructive pulmonary disease, unspecified; D64.81 Anemia due to antineoplastic chemotherapy; D70.1 Agranulocytosis secondary to cancer chemotherapy; E04.1 Nontoxic single thyroid nodule; Z90.89 Acquired absence of other organs; Z98.890 Other specified postprocedural states; Z95.828 Presence of other vascular implants and grafts; Z87.891 Personal history of nicotine dependence; Z92.21 Personal history of antineoplastic chemotherapy
CPT/HCPCS: 80053; 85025; G0463; 36591; 99213

== ENCOUNTER 2021-07-20 10:44 | Outpatient (RCR) | payer MEDICARE, OTHER ==
[~2021-07-20 10:44] MED LIST changes: -LEVO500T80 PO; +LEVO500T81 PO; +MONT-40 PO; -MONT10TA32 PO; -NS IV 500 ML (CANCER CENTER) 500 ML IV SCH; -PEMBROLIZUMAB 200 MG in NS (IVPB) CANCER CENTER 50 ML IV SCH
== END 2021-10-06 | disposition home or self-care (01) ==
LOC: ONC 10:44
PROVIDERS: ATTEND Internal Medicine Hematology & Oncology
DX: Z45.2 Encounter for adjustment and management of vascular access device (principal); C34.91 Malignant neoplasm of unspecified part of right bronchus or lung; J44.9 Chronic obstructive pulmonary disease, unspecified; Z87.891 Personal history of nicotine dependence; Z92.21 Personal history of antineoplastic chemotherapy
CPT/HCPCS: 96523

== ENCOUNTER 2021-12-21 10:02 | Outpatient (RCR) | payer MEDICARE, OTHER | END 2022-01-04 | disposition home or self-care (01) | LOC: ONC 10:02 | PROVIDERS: ATTEND Internal Medicine Hematology & Oncology | DX: Z45.2 Encounter for adjustment and management of vascular access device (principal); C34.91 Malignant neoplasm of unspecified part of right bronchus or lung; C34.92 Malignant neoplasm of unspecified part of left bronchus or lung; C78.6 Secondary malignant neoplasm of retroperitoneum and peritoneum; A31.0 Pulmonary mycobacterial infection; D72.819 Decreased white blood cell count, unspecified; D64.9 Anemia, unspecified; E04.1 Nontoxic single thyroid nodule; Z87.891 Personal history of nicotine dependence | CPT/HCPCS: 96523 ==

== ENCOUNTER 2022-01-18 13:39 | Outpatient (RCR) | payer MEDICARE, OTHER ==
[2022-01-18 14:12] LABS: BASOPHILS # (AUTO) 0.1 10^3/uL (0.0-0.1); BASOPHILS % (AUTO) 1 % (0-10); EOSINOPHILS # (AUTO) 0.1 10^3/uL (0.0-0.3); EOSINOPHILS % (AUTO) 2 % (0-10); HEMATOCRIT 33 % (35-52); HEMOGLOBIN 10.9 g/dL (11.5-16.0); LYMPHOCYTES # (AUTO) 0.5 10^3/uL (1.0-4.0); LYMPHOCYTES % (AUTO) 12 % (12-44); MEAN CORPUSCULAR HEMOGLOBIN 34 pg (25-34); MEAN CORPUSCULAR HGB CONC 33 g/dL (32-36); MEAN CORPUSCULAR VOLUME 101 fL (80-99); MEAN PLATELET VOLUME 9.3 fL (9.0-12.2); MONOCYTES # (AUTO) 0.4 10^3/uL (0.0-1.0); MONOCYTES % (AUTO) 10 % (0-12); NEUTROPHILS # (AUTO) 3.1 10^3/uL (1.8-7.8); NEUTROPHILS % (AUTO) 74 % (42-75); PLATELET COUNT 151 10^3/uL (130-400); WHITE BLOOD COUNT 4.2 10^3/uL (4.3-11.0)
[2022-01-18 14:31] LABS: BILIRUBIN,TOTAL 0.2 MG/DL (0.1-1.0); CALCIUM 9.2 MG/DL (8.5-10.1); CREATININE SERUM 0.95 MG/DL (0.60-1.30); POTASSIUM 4.4 MMOL/L (3.6-5.0)
== END 2022-02-03 | disposition home or self-care (01) ==
LOC: ONC 13:39
PROVIDERS: ATTEND Internal Medicine Hematology & Oncology
DX: Z45.2 Encounter for adjustment and management of vascular access device (principal); C34.91 Malignant neoplasm of unspecified part of right bronchus or lung; C34.92 Malignant neoplasm of unspecified part of left bronchus or lung; C78.6 Secondary malignant neoplasm of retroperitoneum and peritoneum; J44.9 Chronic obstructive pulmonary disease, unspecified; A31.0 Pulmonary mycobacterial infection; D72.819 Decreased white blood cell count, unspecified; D64.9 Anemia, unspecified; E04.1 Nontoxic single thyroid nodule; Z87.891 Personal history of nicotine dependence
CPT/HCPCS: 80053; 85025; 96523; G0463; 99213

== ENCOUNTER 2022-03-02 13:07 | Outpatient (RCR) | payer MEDICARE, OTHER ==
[2022-03-02] MEDS ORDERED: HEParin (CENTRAL IV FLUSH) 500 UNIT/5 ML SYR ONE (13:16)
== END 2022-03-06 | disposition home or self-care (01) ==
LOC: ONC 13:07
PROVIDERS: ATTEND Internal Medicine Hematology & Oncology
DX: Z45.2 Encounter for adjustment and management of vascular access device (principal); C34.91 Malignant neoplasm of unspecified part of right bronchus or lung; C34.92 Malignant neoplasm of unspecified part of left bronchus or lung; C78.6 Secondary malignant neoplasm of retroperitoneum and peritoneum; J44.9 Chronic obstructive pulmonary disease, unspecified; A31.0 Pulmonary mycobacterial infection; D72.819 Decreased white blood cell count, unspecified; D64.9 Anemia, unspecified; E04.1 Nontoxic single thyroid nodule; Z87.891 Personal history of nicotine dependence
CPT/HCPCS: 96523

== ENCOUNTER 2022-05-07 10:18 | Outpatient (RCR) | payer MEDICARE, OTHER ==
[~2022-05-07 10:18] MED LIST changes: +HEParin (CENTRAL IV FLUSH) 500 UNIT/5 ML SYR ONE
== END 2022-06-06 | disposition home or self-care (01) ==
LOC: ONC 10:18
PROVIDERS: ATTEND Internal Medicine Hematology & Oncology
DX: C34.91 Malignant neoplasm of unspecified part of right bronchus or lung (principal); C34.92 Malignant neoplasm of unspecified part of left bronchus or lung; C78.6 Secondary malignant neoplasm of retroperitoneum and peritoneum; J44.9 Chronic obstructive pulmonary disease, unspecified; A31.0 Pulmonary mycobacterial infection; D64.9 Anemia, unspecified; E04.1 Nontoxic single thyroid nodule; I25.10 Atherosclerotic heart disease of native coronary artery without angina pectoris; Z45.2 Encounter for adjustment and management of vascular access device
CPT/HCPCS: 96523

== ENCOUNTER 2022-08-13 10:32 | Outpatient (RCR) | payer MEDICARE, OTHER ==
[~2022-08-13 10:32] MED LIST changes: -HEParin (CENTRAL IV FLUSH) 500 UNIT/5 ML SYR ONE; +LEVO-55 PO; -LEVO500T81 PO
[2022-08-13] MEDS ORDERED: HEParin (CENTRAL IV FLUSH) 500 UNIT/5 ML SYR ONE (10:43)
== END 2022-09-05 | disposition home or self-care (01) ==
LOC: ONC 10:32
PROVIDERS: ATTEND Internal Medicine Hematology & Oncology
DX: C34.91 Malignant neoplasm of unspecified part of right bronchus or lung (principal); C34.92 Malignant neoplasm of unspecified part of left bronchus or lung; C78.6 Secondary malignant neoplasm of retroperitoneum and peritoneum; J44.9 Chronic obstructive pulmonary disease, unspecified; A31.0 Pulmonary mycobacterial infection; D64.9 Anemia, unspecified; E04.1 Nontoxic single thyroid nodule; I25.10 Atherosclerotic heart disease of native coronary artery without angina pectoris

== ENCOUNTER 2023-02-07 09:54 | Outpatient (RCR) | payer MEDICARE, OTHER ==
[2023-02-07 10:18] LABS: BASOPHILS # (AUTO) 0.1 10^3/uL (0.0-0.1); BASOPHILS % (AUTO) 1 % (0-10); EOSINOPHILS # (AUTO) 0.4 10^3/uL (0.0-0.3); EOSINOPHILS % (AUTO) 5 % (0-10); HEMATOCRIT 37 % (35-52); HEMOGLOBIN 12.5 g/dL (11.5-16.0); LYMPHOCYTES # (AUTO) 0.7 10^3/uL (1.0-4.0); LYMPHOCYTES % (AUTO) 8 % (12-44); MEAN CORPUSCULAR HEMOGLOBIN 36 pg (25-34); MEAN CORPUSCULAR HGB CONC 34 g/dL (32-36); MEAN CORPUSCULAR VOLUME 106 fL (80-99); MEAN PLATELET VOLUME 8.4 fL (9.0-12.2); MONOCYTES # (AUTO) 0.7 10^3/uL (0.0-1.0); MONOCYTES % (AUTO) 9 % (0-12); NEUTROPHILS # (AUTO) 6.5 10^3/uL (1.8-7.8); NEUTROPHILS % (AUTO) 77 % (42-75); PLATELET COUNT 286 10^3/uL (130-400); WHITE BLOOD COUNT 8.4 10^3/uL (4.3-11.0)
[2023-02-07 10:46] LABS: ALBUMIN 3.5 GM/DL (3.2-4.5); BILIRUBIN,TOTAL 0.2 MG/DL (0.1-1.0); CALCIUM 9.2 MG/DL (8.5-10.1); CREATININE SERUM 0.63 MG/DL (0.60-1.30); POTASSIUM 4.1 MMOL/L (3.6-5.0); TOTAL PROTEIN 6.9 GM/DL (6.4-8.2)
== END 2023-03-06 | disposition home or self-care (01) ==
LOC: ONC 09:54
PROVIDERS: ATTEND Internal Medicine Hematology & Oncology
DX: Z45.2 Encounter for adjustment and management of vascular access device (principal); C34.91 Malignant neoplasm of unspecified part of right bronchus or lung; C34.92 Malignant neoplasm of unspecified part of left bronchus or lung; C78.6 Secondary malignant neoplasm of retroperitoneum and peritoneum; J44.9 Chronic obstructive pulmonary disease, unspecified; A31.0 Pulmonary mycobacterial infection; D64.9 Anemia, unspecified; E04.1 Nontoxic single thyroid nodule; I25.10 Atherosclerotic heart disease of native coronary artery without angina pectoris
CPT/HCPCS: 36415; 36591; 80053; 82378; 85025

== ENCOUNTER 2023-08-09 10:50 | Outpatient (RCR) | payer MEDICARE, OTHER ==
[2023-08-09 11:08] LABS: BASOPHILS # (AUTO) 0.1 10^3/uL (0.0-0.1); BASOPHILS % (AUTO) 1 % (0-10); EOSINOPHILS # (AUTO) 0.4 10^3/uL (0.0-0.3); EOSINOPHILS % (AUTO) 4 % (0-10); HEMATOCRIT 39 % (35-52); HEMOGLOBIN 12.7 g/dL (11.5-16.0); LYMPHOCYTES # (AUTO) 0.5 10^3/uL (1.0-4.0); LYMPHOCYTES % (AUTO) 5 % (12-44); MEAN CORPUSCULAR HEMOGLOBIN 35 pg (25-34); MEAN CORPUSCULAR HGB CONC 33 g/dL (32-36); MEAN CORPUSCULAR VOLUME 106 fL (80-99); MEAN PLATELET VOLUME 9.4 fL (9.0-12.2); MONOCYTES # (AUTO) 0.9 10^3/uL (0.0-1.0); MONOCYTES % (AUTO) 10 % (0-12); NEUTROPHILS % (AUTO) 79 % (42-75); PLATELET COUNT 150 10^3/uL (130-400); WHITE BLOOD COUNT 8.9 10^3/uL (4.3-11.0)
[2023-08-09 11:29] LABS: BILIRUBIN,TOTAL 0.4 MG/DL (0.1-1.0); CALCIUM 9.2 MG/DL (8.5-10.1); CREATININE SERUM 0.75 MG/DL (0.60-1.30); TOTAL PROTEIN 7.1 GM/DL (6.4-8.2)
== END 2023-09-05 | disposition home or self-care (01) ==
LOC: ONC 10:50
PROVIDERS: ATTEND Internal Medicine Hematology & Oncology
DX: C34.91 Malignant neoplasm of unspecified part of right bronchus or lung (principal); Z87.891 Personal history of nicotine dependence
CPT/HCPCS: 80053; 82378; 85025; G0463; 36415; 99214